=== PATIENT | female | born 1975 | race Caucasian/White ===

== ENCOUNTER 2018-07-12 14:17 | Outpatient (CLI) | payer BC, SELFPAY ==
[2018-07-12 15:08] LABS: Abs Immature Grans 0.01 k/cumm (0.0-0.09); Absolute Basophil Count 0.02 k/cumm (0.0-0.2); Absolute Eosinophil Count 0.35 k/cumm (0.0-0.7); Absolute Lymphocyte Count 1.95 k/cumm (1.2-3.4); Absolute Neutrophil Count 4.44 k/cumm (1.2-6.7); Basophils % 0.3; Eosinophils % 4.9; HCT 38.4 % (36.0-46.0); HGB 12.2 g/dL (12.0-15.5); Immature Grans % 0.1; Lymphocytes % 27.2; Mean Corp. HGB Concentration 31.8 g/dL (32.0-36.0); Mean Corpuscular Hemoglobin 26.1 pg (27.0-33.0); Mean Corpuscular Volume 82.1 fL (80-95); Mean Platelet Volume 11.2 fL (8.0-11.0); Monocytes % 5.6; Neutrophils % 61.9; Platelet Count 206 x1000/uL (130-400); RBC 4.68 m/cumm (4.00-5.20); White Blood Cell Count 7.17 k/cumm (4.4-10.8)
[2018-07-12 16:28] LABS: Ferritin 10 ng/mL (8-388); TSH (W/Ref FT4) 0.09 uIU/mL (0.358-3.74)
[2018-07-12 17:13] LABS: FREE T4 1.18 ng/dL (0.76-1.46)
[2018-07-12 20:53] LABS: Iron 23 ug/dL (50-175)
== END 2018-07-12 14:37 ==
PROVIDERS: PCP Family Medicine; Visit Provider Family Medicine
DX: E61.1 Iron deficiency (principal); E03.9 Hypothyroidism, unspecified
CPT/HCPCS: 36415; 82728; 83540; 84439; 84443; 85025

== ENCOUNTER 2019-02-01 14:37 | Outpatient (CLI) | payer BC, SELFPAY ==
[2019-02-01 15:33] LABS: HCT 34.4 % (36.0-46.0); HGB 10.6 g/dL (12.0-15.5); Mean Corp. HGB Concentration 30.8 g/dL (32.0-36.0); Mean Corpuscular Hemoglobin 24.7 pg (27.0-33.0); Mean Platelet Volume 12.1 fL (8.0-11.0); Platelet Count 197 x1000/uL (130-400); RBC Distribution Width 16.3 % (11.7-14.6); White Blood Cell Count 6.44 k/cumm (4.4-10.8)
[2019-02-01 16:31] LABS: Iron 36 ug/dL (50-175)
[2019-02-01 16:37] LABS: TSH (W/Ref FT4) 0.09 uIU/mL (0.358-3.74)
== END 2019-02-01 14:57 ==
PROVIDERS: PCP Family Medicine; Visit Provider Family Medicine
DX: E03.9 Hypothyroidism, unspecified (principal); E61.1 Iron deficiency
CPT/HCPCS: 36415; 85027; 83540; 84439; 84443

== ENCOUNTER 2019-04-19 16:34 | Outpatient (CLI) | payer BC, SELFPAY ==
[2019-04-19 17:08] LABS: Abs Immature Grans 0.01 k/cumm (0.0-0.09); Absolute Basophil Count 0.03 k/cumm (0.0-0.2); Absolute Eosinophil Count 0.24 k/cumm (0.0-0.7); Absolute Lymphocyte Count 2.01 k/cumm (1.2-3.4); Absolute Monocyte Count 0.35 k/cumm (0.11-0.7); Absolute Neutrophil Count 3.38 k/cumm (1.2-6.7); Basophils % 0.5; HGB 10.4 g/dL (12.0-15.5); Immature Grans % 0.2; Lymphocytes % 33.4; Mean Corp. HGB Concentration 30.6 g/dL (32.0-36.0); Mean Corpuscular Hemoglobin 23.6 pg (27.0-33.0); Mean Corpuscular Volume 77.3 fL (80-95); Mean Platelet Volume 11.8 fL (8.0-11.0); Monocytes % 5.8; Neutrophils % 56.1; Platelet Count 256 x1000/uL (130-400); RBC Distribution Width 15.4 % (11.7-14.6); White Blood Cell Count 6.02 k/cumm (4.4-10.8)
[2019-04-19 17:44] LABS: Iron 20 ug/dL (50-175)
[2019-04-19 17:50] LABS: TSH 0.08 uIU/mL (0.36-3.74)
== END 2019-04-19 16:54 ==
PROVIDERS: PCP Family Medicine; Visit Provider Internal Medicine
DX: R79.89 Other specified abnormal findings of blood chemistry (principal); E03.9 Hypothyroidism, unspecified
CPT/HCPCS: 36415; 83540; 84439; 84443; 85025

== ENCOUNTER 2020-03-22 08:25 | Outpatient (CLI) | payer BC, SELFPAY ==
[2020-03-22 13:08] LABS: FREE T4 1.18 ng/dL (0.76-1.46); TSH 1.56 uIU/mL (0.36-3.74)
[2020-03-25 05:24] LABS: Vitamin D 25 Total 40.8 ng/ml (30-100)
== END 2020-03-22 08:45 ==
PROVIDERS: PCP Family Medicine; Visit Provider Family Medicine
DX: E03.8 Other specified hypothyroidism (principal); E06.3 Autoimmune thyroiditis
CPT/HCPCS: 36415; 82306; 84439; 84443

== ENCOUNTER 2020-12-24 01:33 | Outpatient (CLI) | payer BC, SELFPAY ==
--- NOTE | 2020-12-24 07:00 | DI.RAD_ITS ---
Exam(s) XR FOOT RT COMPLETE EXAM: XR FOOT RT COMPLETE CLINICAL HISTORY: r foot pain after walking,M79.671. TECHNIQUE: 2D digital imaging was performed. COMPARISON: No exams were available for comparison FINDINGS: BONES: No acute fracture is present. No bony destructive lesion is seen. JOINTS: No dislocation present. Mild degenerative changes of the 1st MTP joint. SOFT TISSUE: Normal. IMPRESSION: No acute fracture or dislocation. DATA REPOSITORY: RADIATION DOSE DELIVERED:
== END 2020-12-24 01:53 ==
PROVIDERS: PCP Family Medicine; Visit Provider Family Medicine
DX: M79.671 Pain in right foot (principal); M19.071 Primary osteoarthritis, right ankle and foot
CPT/HCPCS: 73630

== ENCOUNTER 2021-06-30 01:56 | Outpatient (CLI) | payer BC, SELFPAY ==
[2021-06-30 13:27] LABS: TSH (W/Ref FT4) 0.14 uIU/mL (0.36-3.74)
[2021-06-30 13:53] LABS: FREE T4 1.26 ng/dL (0.76-1.46)
[2021-06-30 16:33] LABS: T3,Free 4.3 pg/mL (2.8-5.3)
== END 2021-06-30 01:57 | disposition home or self-care (01) ==
LOC: LOS 01:56
PROVIDERS: PCP Family Medicine; Visit Provider Family Medicine
DX: E03.9 Hypothyroidism, unspecified (principal)
CPT/HCPCS: 36415; 84439; 84443; 84481

== ENCOUNTER 2022-09-11 01:42 | Outpatient (CLI) | payer BC, SELFPAY ==
[2022-09-11 11:14] LABS: HCT 30.4 % (36.0-46.0); HGB 8.1 g/dL (11.2-15.7); MCH 16.2 pg (27.0-33.0); MCHC 26.6 % (32.0-36.0); MCV 61 fL (80-95); Platelet Count 357 10^3/uL (130-400); RDW 20.7 % (11.7-14.6); RDW-SD 42.4 fL; WBC 7.45 10^3/uL (4.4-10.8)
[2022-09-11 11:47] LABS: Iron 13 ug/dL (50-170)
[2022-09-11 11:49] LABS: Ferritin 4 ng/mL (8-252); TSH (W/Ref FT4) 0.05 uIU/mL (0.36-3.74)
[2022-09-11 12:06] LABS: FREE T4 1.41 ng/dL (0.76-1.46)
== END 2022-09-11 01:43 | disposition home or self-care (01) ==
LOC: LBO 01:43
PROVIDERS: PCP Family Medicine; Visit Provider Family Medicine
DX: E03.9 Hypothyroidism, unspecified (principal); E61.1 Iron deficiency
CPT/HCPCS: 36415; 85027; 82728; 83540; 84439; 84443

== ENCOUNTER 2022-09-11 11:40 | Outpatient (REF) | payer BC, SELFPAY ==
--- NOTE | 2022-09-11 10:30 | PAPFT_PTH ---
PATIENT: Dorothea Salas LOC: [facility] U#:[id number] AGE/SX: 47/F ROOM: RE09/11/[address]: Ida Barnard MD : 1975 BED: DIS: 09/11/2022 SPEC #: [id number] RECD: 09/11/22 12:52 STATUS: [place] REQ #: [id number] DUGLAS: 09/11/22 10:[address]: Ida Barnard DEPT: [facility] Cytology RECD BY: Skylar Venegas ENTERED: 09/11/22 12:52 SP TYPE: PAPFT OTHR DR: Kaylee Bangura MD, DC Tissues: 1 - CX/ENDOCX FOR PAP SMEARS Procedures: PAP THIN PREP/UVM Screening HPV DNA PROBE Comments: [id number]
== END 2022-09-11 11:41 | disposition home or self-care (01) ==
LOC: LBN 11:40
PROVIDERS: PCP Family Medicine; Visit Provider Obstetrics & Gynecology
DX: Z11.51 Encounter for screening for human papillomavirus (HPV) (principal)
CPT/HCPCS: 88142; 87624

== ENCOUNTER 2022-11-17 01:56 | Outpatient (RCR) | payer BC, SELFPAY ==
[2022-10-27] MEDS: SODIUM FER. GLUC./SUC. 125 MG in Normal Saline 100 ML 110 MG IVPB (10:28)
[2022-10-27] MEDS: Normal Saline Flush 10 ML SYR IVP (10:33)
[2022-11-02] MEDS: SODIUM FER. GLUC./SUC. 125 MG in Normal Saline 100 ML 110 MG IVPB (11:12)
[2022-11-02] MEDS: Normal Saline Flush 10 ML SYR IVP (11:12)
[2022-11-10] MEDS: SODIUM FER. GLUC./SUC. 125 MG in Normal Saline 100 ML 110 MG IVPB (12:55)
[2022-11-10] MEDS: Normal Saline Flush 10 ML SYR IVP (13:10)
[2022-11-17] MEDS: SODIUM FER. GLUC./SUC. 125 MG in Normal Saline 100 ML 110 MG IVPB (12:42)
[2022-11-17] MEDS: Normal Saline Flush 10 ML SYR IVP (12:48)
== END 2022-11-20 23:59 | disposition home or self-care (01) ==
LOC: INF 01:56
PROVIDERS: PCP Family Medicine; Visit Provider Family Medicine
DX: D50.9 Iron deficiency anemia, unspecified (principal)
CPT/HCPCS: 96365; J2916

== ENCOUNTER 2022-12-02 03:12 | Outpatient (CLI) | payer BC, SELFPAY ==
[2022-12-02 16:05] LABS: HCT 34.5 % (36.0-46.0); HGB 9.9 g/dL (11.2-15.7); MCHC 28.7 % (32.0-36.0); MCV 66 fL (80-95); Platelet Count 310 10^3/uL (130-400); RBC 5.22 10^6/uL (3.93-5.22); RDW 27.8 % (11.7-14.6); RDW-SD 63.2 fL; WBC 7.07 10^3/uL (4.4-10.8)
[2022-12-02 17:02] LABS: Ferritin 17 ng/mL (8-252); TSH (W/Ref FT4) 0.11 uIU/mL (0.36-3.74)
[2022-12-02 17:09] LABS: Iron 14 ug/dL (50-170)
[2022-12-02 17:26] LABS: FREE T4 1.21 ng/dL (0.76-1.46)
== END 2022-12-02 03:13 | disposition home or self-care (01) ==
LOC: LBO 03:12
PROVIDERS: PCP Family Medicine; Visit Provider Family Medicine
DX: E61.1 Iron deficiency (principal); R53.83 Other fatigue; E03.9 Hypothyroidism, unspecified
CPT/HCPCS: 36415; 85027; 82728; 83540; 84439; 84443

== ENCOUNTER 2022-12-15 02:21 | Outpatient (RCR) | payer BC, SELFPAY ==
[2022-12-15] MEDS: Normal Saline Flush 10 ML SYR IVP (09:39)
[2022-12-15] MEDS: SODIUM FER. GLUC./SUC. 125 MG in Normal Saline 100 ML 110 MG IVPB (09:39)
== END 2022-12-20 23:59 | disposition home or self-care (01) ==
LOC: INF 02:21
PROVIDERS: PCP Family Medicine; Visit Provider Internal Medicine
DX: D50.9 Iron deficiency anemia, unspecified (principal)
CPT/HCPCS: 96365; J2916

== ENCOUNTER 2023-01-14 02:37 | Outpatient (RCR) | payer BC, SELFPAY ==
[2022-12-25] MEDS: Normal Saline Flush 10 ML SYR IVP (10:51)
[2022-12-25] MEDS: SODIUM FER. GLUC./SUC. 125 MG in Normal Saline 100 ML 110 MG IVPB (11:10)
[2023-01-05] MEDS: Normal Saline Flush 10 ML SYR IVP (12:30)
[2023-01-14] MEDS: Normal Saline Flush 10 ML SYR IVP (08:23)
[2023-01-14] MEDS: SODIUM FER. GLUC./SUC. 125 MG in Normal Saline 100 ML 110 MG IVPB (08:40)
== END 2023-01-20 23:59 | disposition home or self-care (01) ==
LOC: INF 02:37
PROVIDERS: PCP Family Medicine; Visit Provider Internal Medicine
DX: D50.9 Iron deficiency anemia, unspecified (principal)
CPT/HCPCS: 96365; J2916

== ENCOUNTER 2023-01-20 04:44 | Outpatient (CLI) | payer BC, SELFPAY ==
[2023-01-20 16:43] LABS: HCT 39.8 % (36.0-46.0); HGB 12.3 g/dL (11.2-15.7); MCH 23.7 pg (27.0-33.0); MCHC 30.9 % (32.0-36.0); Platelet Count 241 10^3/uL (130-400); RDW-SD 70.9 fL; Reticulocyte 0.6 % (0.5-2.4); WBC 9.35 10^3/uL (4.4-10.8)
[2023-01-20 17:54] LABS: Iron 34 ug/dL (50-170)
[2023-01-20 18:30] LABS: ALT 22 U/L (14-59); AST 17 U/L (15-37); Albumin 3.6 g/dL (3.4-5.0); Alkaline Phosphatase 69 U/L (46-116); Anion Gap 9.7 mmol/L (3-11); BUN 14 mg/dL (7-18); Bilirubin, Total 0.3 mg/dL (0.2-1.0); CO2 24.3 mmol/L (21.0-32.0); CREATININE 0.9 mg/dL (0.55-1.02); Calcium 8.7 mg/dL (8.5-10.1); Chloride 105 mmol/L (98-107); Estimated GFR 80.34 (mL/min/1.73m2); Folate 10.3 ng/mL (8.6-20.0); Glucose 121 mg/dL (74-106); Potassium 3.8 mmol/L (3.5-5.1); Sodium 139 mmol/L (136-145); Total Protein 6.9 g/dL (6.4-8.2); Vitamin B12 202 pg/mL (193-986)
[2023-01-20 18:40] LABS: Bilirubin, Direct 0.1 mg/dL (0.0-0.2)
[2023-01-20 19:24] LABS: MCV 77 fL (80-95)
[2023-01-20 19:25] LABS: RDW 26.2 % (11.7-14.6)
[2023-01-20 19:47] LABS: Ferritin 80 ng/mL (8-252)
[2023-01-22 15:32] LABS: ANA Interpretation Negative (Negative)
== END 2023-01-20 04:45 | disposition home or self-care (01) ==
LOC: LBO 04:44
PROVIDERS: Surgery; PCP Family Medicine; Visit Provider Family Medicine
DX: D50.9 Iron deficiency anemia, unspecified; E03.9 Hypothyroidism, unspecified; K21.9 Gastro-esophageal reflux disease without esophagitis; J45.20 Mild intermittent asthma, uncomplicated; R10.11 Right upper quadrant pain; Z12.11 Encounter for screening for malignant neoplasm of colon
CPT/HCPCS: 36415; 80053; 85027; 82248; 82607; 82728; 82746; 83540; 85045; 86038; 86880

== ENCOUNTER 2023-01-27 07:03 | Day surgery (SDC) | payer BC, SELFPAY ==
[2023-01-27 07:17] VITALS: BP 129/77; PULSE 75; RESP 16; TEMP 36.8; O2SAT 98
[2023-01-27] MEDS: Lactated Ringers 1,000 ML 80 ML IV (07:43)
--- NOTE | 2023-01-27 07:54 | ANES.PREOP_ITS ---
General Info Date of Service Date Performed: 01/27/23 Height: 5 ft 5 in Weight: 101.1 kg Body Mass Index (BMI): 37.0 Surgical Procedure: Operation Date: 01/27/23 08:05 Proposed Procedure Side Surgeon p Colonoscopy/Gastroscopy Jean-Paul Bear MD Meds Allergies and Home Medications Allergies Allergy/AdvReac Type Severity Reaction Status Date / Time clindamycin Allergy Intermediate Rash Verified 01/27/23 07:14 Penicillins Allergy Mild rash Verified 01/27/23 07:14 morphine AdvReac Severe HALLUCINATI Verified 01/27/23 07:14 ONS promethazine AdvReac Severe TONIC/CLONIC Verified 01/27/23 07:14 REACTION Home Medication Medication Instructions Recorded acetaminophen 500 mg tablet 2 tab PO TID PRN 11/29/12 (Acetaminophen Extra Strength) ibuprofen 200 mg tablet (Motrin IB) 2 tab PO TID PRN 11/29/12 polysaccharide iron complex 150 mg 150 mg PO DAILY 02/02/19 iron capsule levothyroxine 150 mcg tablet 150 mcg PO DAILY #90 tab-caps 12/02/22 liothyronine 5 mcg tablet 10 mcg PO DAILY #180 tab-caps 12/02/22 ascorbic acid (vitamin C) 500 mg 500 mg PO DAILY 01/14/23 tablet Current Visit Medications: Current Medications Generic Name Dose Route Start Last Admin Trade Name Aaronq PRN Reason Stop Dose Admin Ringer's Solution 1,000 mls @ 80 mls/hr 01/27/23 06:00 01/27/23 07:43 IV 02/25/23 23:59 80 mls/hr INFUSION LINDA Administration IV Miscellaneous Supplies 1 each 01/27/23 06:00 Iv Access IV 02/25/23 23:59 DIRECTED LINDA Sodium Chloride 0 ml 01/27/23 06:00 Normal Saline Flush 10 Ml Syr IV 02/25/23 23:59 PRN PRN Sodium Chloride 0 ml 01/27/23 06:00 Normal Saline 10 Ml Vial IJ 02/25/23 23:59 DIRECTED PRN Sterile Water 0 ml 01/27/23 06:00 Water,Injection,Sterile 10 Ml Vial IJ 02/25/23 23:59 DIRECTED PRN PFSH Active Problems Active Problems: Problem Status Onset Code Encounter for screening colonoscopy Z12.11 Family history of skin cancer Z80.8 Patellofemoral arthralgia of left knee M25.562 Fe deficiency anemia D50.9 RUQ abdominal pain R10.11 Medical History Medical History Gastroesophageal reflux disease (03/15/12) Goiter (08/23/04) H/O POST GOITER; h/o hypothyroid and abnl antimicrosomal ab 2005 Hypothyroidism (03/16/12) [place] [place] HASHIMOTOS, THYROID NODULE, GOITER Iron deficiency (03/16/13) Mild intermittent reactive airway disease (08/20/15) Pt. deniesw Right foot pain Sacral back pain Surgical History Surgical History Endometrial Biopsy (05/18/14) [facility] Hx of appendectomy Tobacco Smoking/Tobacco Use Status: Never Passive smoking exposure: No Second hand exposure: No Alcohol Alcohol Intake: current Alcohol intake frequency: a few times a month Substance Use Substance use: Never Substance use type: does not use Prental History History 2 Para 2 Hx # Term Pregnancies Multiple births Hx # Pregnancies Ectopic pregnancies AB induced Hx Number of Living Children AB spontaneous Vital Signs and Lab Results Vital Signs Most Recent Vital Signs in EMR: Most Recent Vital Signs Temp Pulse Resp BP Pulse Ox 36.8 C 75 16 129/77 98 01/27/23 07:17 01/27/23 07:17 01/27/23 07:17 01/27/23 07:17 01/27/23 07:17 Lab Results Blood Type / Crossmatch: No Data to Display Complete Blood Count: White Blood Count 9.35 10^3/uL (4.4-10.8) 01/20/23 16:18 Red Blood Count 5.20 10^6/uL (3.93-5.22) 01/20/23 16:18 Hemoglobin 12.3 g/dL (11.2-15.7) 01/20/23 16:18 Hematocrit 39.8 % (36.0-46.0) 01/20/23 16:18 Platelet Count 241 10^3/uL (130-400) 01/20/23 16:18 Complete Metabolic Panel: Sodium 139 mmol/L (136-145) 01/20/23 16:18 Potassium 3.8 mmol/L (3.5-5.1) 01/20/23 16:18 Chloride 105 mmol/L (98-107) 01/20/23 16:18 Carbon Dioxide 24.3 mmol/L (21.0-32.0) 01/20/23 16:18 BUN 14 mg/dL (7-18) 01/20/23 16:18 Creatinine 0.9 mg/dL (0.55-1.02) 01/20/23 16:18 Est GFR (CKD-EPI 2020) 80.34 (mL/min/1.73m2) 01/20/23 16:18 Calcium 8.7 mg/dL (8.5-10.1) 01/20/23 16:18 Albumin 3.6 g/dL (3.4-5.0) 01/20/23 16:18 Glucose 121 mg/dL (74-106) H 01/20/23 16:18 Liver Function Panel: Alanine Aminotransferase (ALT/SGPT) 22 U/L (14-59) 01/20/23 16: 18 Aspartate Amino Transf (AST/SGOT) 17 U/L (15-37) 01/20/23 16:18 Coagulation Panel: No Data to Display Cardiac Panel: No Data to Display Arterial Blood Gas: No Data to Display Venous Blood Gas: No Data to Display Pancreas Panel: No Data to Display Thyroid Panel: No Data to Display Infectious Disease: No Data to Display Blood Cultures: No Data to Display Toxicology Panel: No Data to Display Panel: No Data to Display Anesthesia Assessment and Plan Anesthesia History Personal History: No History of Anesthesia Complications Family History: No Family History of Anesthesia Complications Exercise Tolerance Exercise Tolerance: Metabolic Equivalents>4 Pertinent Negatives Pertinent Negatives: No Symptoms of GERD, No Major Cardiovascular Symptoms or Complaints, No Major Pulmonary Symptoms or Complaints and No History of CVA/TIA Cardiac & Pulmonary Exam Cardiac Exam: Normal S1/S2 Heart Sounds Pulmonary Exam: Clear Bilateral Breath Sounds Implantable Cardiac Device Does patient have a Pacemaker or an ICD?: No Airway Exam Known Difficult Airway: No Mallampati Class: 2 Mouth Opening: Normal (> 3cm) Thyromental Distance: Greater than 3 cm Neck Range of Motion: Full ROM Neck Circumference: Normal Teeth Condition: Normal Dentition ASA Classification ASA Score: ASA 2 Emergency Case?: No NPO Status NPO Status: NPO Clears >2 hours, Solids >8 hours Status Status: Negative HCG Anesthesia Plan Resuscitation Status: Full Code Anesthesia Technique: General Anesthesia Airway Planned: Natural Airway Monitors Used: Standard Monitors
[2023-01-27 08:13] VITALS: BMI 37.0
--- NOTE | 2023-01-27 08:33 | BOWEL_PTH ---
PATIENT: Dorothea Salas LOC: [facility] U#:[id number] AGE/SX: 47/F ROOM: RE01/27/[address]: Jean-Paul Bear : 1975 BED: DIS: 01/27/2023 SPEC #: [id number] RECD: 01/27/23 10:54 STATUS: [place] [facility] #: [id number] DUGLAS: 01/27/23 08:[address]: Jean-Paul Bear DEPT: Surgical Specimen RECD BY: Skylar Venegas ENTERED: 01/27/23 10:57 SP TYPE: Bowel OTHR DR: Kaylee Bangura MD, DC Tissues: 1 - BIOPSY BOWEL 2 - BIOPSY BOWEL 3 - STOMACH BIOPSY 4 - STOMACH BIOPSY 5 - ESOPHAGUS BIOPSY 6 - BIOPSY BOWEL 7 - BIOPSY BOWEL 8 - BIOPSY BOWEL Procedures: GROSS AND MICRO LEVEL 4 IMMUNOPEROXIDASE STAIN Comments:
[2023-01-27 09:02] VITALS: BP 107/75; PULSE 73; RESP 16; TEMP 36.5; O2SAT 98
--- NOTE | 2023-01-27 09:09 | W.PM.ENDDOP ---
Date of service: 01/27/23 Time of Service: 09:10 Endoscopy Report PROCEDURE DESCRIPTION: Procedures performed: 1.? Esophagogastroduodenoscopy with cold forceps biopsies Preoperative diagnosis: Anemia, low iron Postoperative diagnosis: Normal foregut Surgeon: Clarence Bear Anesthesia: Evi Indication for procedure: 47-year-old woman with a history of abdominal issues, possible celiac disease as well as anemia and low iron chronically. Findings: - D4, D3, D2 and D1 - normal - no inflammation or ulcers. Cold forceps biopsies were taken of the distal duodenum as well as at the bulb to rule out celiac disease. - Pylorus - patent.? No bile reflux visualized during procedure. - Antrum -looks normal.- biopsies taken to rule out occult H. pylori - Stomach Body -looks normal.? Biopsies taken to rule out occult H. pylori. - Fundus -? Normal.? No polyps. - Hiatus - Retroflexion showed a normal fundus along with normal hiatus. No hernia. - Esophagus - distal esophagus does not look inflamed.? No stricture or evidence of Mahan's.? The mid and proximal esophagus was also normal. Cold forceps biopsies were taken at the distal esophagus. - Cords/hypopharynx - Normal OVERALL - nothing visually found or seen out of concern. Surveillance/follow-up recommendations: Unlikely to be necessary. Complications: None Blood loss: Minimal Specimens:? YES Procedure in detail: Written consent was obtained from the patient who was in agreement with the risks, benefits and indications of the procedure.? We went to the endoscopy suite and laid the patient in left lateral decubitus position.? Anesthesia was administered which was tolerated well.? A timeout was performed and when we are all in agreement we began the procedure. A well?lubricated endoscope was advanced without difficulty down the esophagus, into the stomach, through a patent pylorus and into the distal duodenum/proximal jejunum.? It was then slowly pulled back with findings noted above. The scope was then removed and the patient tolerated the procedure well and was then turned for the colonoscopy portion of the procedure (see separate procedure note)
--- NOTE | 2023-01-27 09:16 | W.COLOREPORT ---
Date of service: 01/27/23 Time of Service: 09:10 Colonoscopy Report Procedure Description: Procedures performed: 1. Colonoscopy with cold forceps biopsies Preoperative diagnosis: Surveillance colonoscopy Postoperative diagnosis: Colon polyp, grade 1 internal hemorrhoids Surgeon: Clarence Bear Anesthesia: Evi Indication for procedure: 47-year-old woman due for screening/surveillance colonoscopy (she has had 1 done before, more than 10 years ago for abdominal discomfort). Findings: Terminal ileum was normal.? There was no evidence in the mucosa of the colon or ileum to suggest chronic inflammation.? Cold forceps biopsies were taken from both of these randomly because of her chronic symptoms.? In the transverse colon a sessile 3-5 mm polyp was removed with multiple biopsies of a cold forcep. No diverticular changes noted. Minimal, grade 1 internal hemorrhoids noted in the rectum along with a couple of small hyperplastic polyps. Surveillance/follow-up recommendations: 10 years Complications: None Blood loss: Minimal Prep: Excellent Procedure in detail: Written consent was obtained from the patient who was in agreement with the risks, benefits and indications of the procedure.? The patient was turned from her upper endoscopy (see separate procedure note) and anesthesia was continued and the patient was kept in the same position I started the colonoscopy portion of the procedure.? Digital rectal exam and visual examination was performed.? Normal sphincter tone.? Internal hemorrhoids are palpable.? A well?lubricated colonoscope was advanced without difficulty all the way to the cecum identified by the ileocecal valve, and triangular folds and appendiceal orifice.? Terminal ileum was normal.? It was then slowly withdrawn.?? Retroflexion was performed in the rectum.? The findings/interventions are noted above. The scope was then removed and the patient tolerated the procedure well and was then taken back to the PACU in hemodynamically stable condition
--- NOTE | 2023-01-27 09:18 | W.ANESPOSTOP ---
Postoperative Evaluation Date, Time and Location Date Performed: 01/27/23 Time Performed: 09:16 Patient Location: Day Surgery Unit Vital Signs Most Recent Imported Vital Signs: Most Recent Vital Signs Temp Pulse Resp BP Pulse Ox 36.5 C 73 16 107/75 98 01/27/23 09:02 01/27/23 09:02 01/27/23 09:02 01/27/23 09:02 01/27/23 09:02 Pain Score Most Recent Pain Score: Most Recent Pain Score Pain Level 0 01/27/23 09:02 Assessment Mental Status: Awake (Alert & Oriented to Patient Baseline) Airway and Respiratory Function: Patent airway with normal (patient baseline) respiratory exam Cardiovascular Function: Hemodynamically Stable Hydration Status: Adequately Hydrated Nausea & Vomiting: No Nausea or Vomiting Pain: Pt. Denies Any Pain Peripheral Nerve Block: Patient did not receive a nerve block
[2023-01-27 09:34] VITALS: BP 113/68; PULSE 55; RESP 16; TEMP 36.6; O2SAT 98
== END 2023-01-27 09:55 | disposition home or self-care (01) ==
PROVIDERS: PCP Family Medicine; Visit Provider Student in an Organized Health Care Education/Training Program
PROC: (CPT 45380; principal; 2023-01-27 08:00)
DX: Z12.11 Encounter for screening for malignant neoplasm of colon (principal); K63.5 Polyp of colon; K64.0 First degree hemorrhoids; D61.1 Drug-induced aplastic anemia; D64.9 Anemia, unspecified; K31.89 Other diseases of stomach and duodenum
CPT/HCPCS: 45380; 43239; 81025; 88305; 88361; J2405

== ENCOUNTER 2023-02-15 02:47 | Outpatient (RCR) | payer BC, SELFPAY ==
[2023-02-01] MEDS: SODIUM FER. GLUC./SUC. 125 MG in Normal Saline 100 ML 110 MG IVPB (08:05)
[2023-02-01] MEDS: Normal Saline Flush 10 ML SYR IVP (08:05)
[2023-02-08] MEDS: SODIUM FER. GLUC./SUC. 125 MG in Normal Saline 100 ML 110 MG IVPB (08:50)
[2023-02-08] MEDS: Normal Saline Flush 10 ML SYR IVP (08:51)
[2023-02-15] MEDS: SODIUM FER. GLUC./SUC. 125 MG in Normal Saline 100 ML 110 MG IVPB (08:34)
[2023-02-15] MEDS: Normal Saline Flush 10 ML SYR IVP (08:34)
== END 2023-02-19 23:59 | disposition home or self-care (01) ==
LOC: INF 02:47
PROVIDERS: PCP Family Medicine; Visit Provider Internal Medicine
DX: D50.9 Iron deficiency anemia, unspecified (principal)
CPT/HCPCS: 96365; J2916

== ENCOUNTER 2023-04-16 01:36 | Outpatient (CLI) | payer BC, SELFPAY ==
[2023-04-16 12:35] LABS: FREE T4 1.42 ng/dL (0.76-1.46); TSH 0.08 uIU/mL (0.36-3.74)
[2023-04-17 14:35] LABS: Lab Add On Test DONE
[2023-04-17 14:57] LABS: Iron 46 ug/dL (50-170)
[2023-04-17 15:10] LABS: Ferritin 71 ng/mL (8-252)
== END 2023-04-16 01:37 | disposition home or self-care (01) ==
LOC: LBO 01:36
PROVIDERS: PCP Family Medicine; Visit Provider Family Medicine
DX: D50.9 Iron deficiency anemia, unspecified (principal); E03.9 Hypothyroidism, unspecified
CPT/HCPCS: 36415; 82728; 83540; 84439; 84443

== ENCOUNTER 2023-05-10 04:24 | Outpatient (CLI) | payer BC, SELFPAY ==
[2023-05-10 17:01] LABS: Abs Immature Grans 0.01 10^3/uL (0.0-0.06); Absolute Basophil Count 0.03 10^3/uL (0.0-0.2); Absolute Eosinophil Count 0.18 10^3/uL (0.0-0.7); Absolute Lymphocyte Count 1.75 10^3/uL (1.2-3.4); Absolute Monocyte Count 0.38 10^3/uL (0.1-0.8); Absolute Neutrophil Count 5.49 10^3/uL (1.2-6.7); Basophils % 0.4; Eosinophils % 2.3; HCT 40.8 % (36.0-46.0); HGB 13.4 g/dL (11.2-15.7); Immature Grans % 0.1; Lymphocytes % 22.3; MCH 28.8 pg (27.0-33.0); MCHC 32.8 % (32.0-36.0); MCV 88 fL (80-95); MPV 11.9 fL (8.0-11.0); Monocytes % 4.8; Neutrophils % 70.1; Platelet Count 156 10^3/uL (130-400); RBC 4.65 10^6/uL (3.93-5.22); RDW 13.5 % (11.7-14.6); RDW-SD 43.2 fL; WBC 7.84 10^3/uL (4.4-10.8)
== END 2023-05-10 04:25 | disposition home or self-care (01) ==
LOC: LBO 04:24
PROVIDERS: PCP Family Medicine; Visit Provider Obstetrics & Gynecology
DX: Z01.818 Encounter for other preprocedural examination (principal)
CPT/HCPCS: 36415; 86850; 86900; 86901; 85025

== ENCOUNTER 2023-05-12 07:20 | Day surgery (SDC) | payer BC, SELFPAY ==
[2023-05-12] VITALS (11 sets, daily range): BP systolic 118–135; BP diastolic 62–82; PULSE 57–86; RESP 12–18; TEMP 36.2–37; O2SAT 94–100; BMI 37.1
--- NOTE | 2023-05-12 07:47 | W.ANESPRE ---
General Info Date of Service Date Performed: 05/12/23 Height: 5 ft 5 in Weight: 101.2 kg Body Mass Index (BMI): 37.1 Surgical Procedure: Operation Date: 05/12/23 09:10 Proposed Procedure Side Surgeon p Dilation & Curettage with Hysteroscopy, Myosure Nicki Alejo DO s Insertion of IUD Nicki Alejo DO Actual Procedure Side Surgeon p Dilation & Curettage with Hysteroscopy, Myosure Nicki Alejo DO s Insertion of IUD Nicki Alejo DO Pre-Op Diagnosis Post-Op Diagnosis DUB (dysfunctional uterine bleeding) Meds Allergies and Home Medications Allergies Allergy/AdvReac Type Severity Reaction Status Date / Time clindamycin Allergy Intermediate Rash Verified 05/12/23 07:44 Penicillins Allergy Mild rash Verified 05/12/23 07:44 morphine AdvReac Severe HALLUCINATI Verified 05/12/23 07:44 ONS promethazine AdvReac Severe TONIC/CLONIC Verified 05/12/23 07:44 REACTION Home Medication Medication Instructions Recorded acetaminophen 500 mg tablet 2 tab PO TID PRN 11/29/12 (Acetaminophen Extra Strength) ibuprofen 200 mg tablet (Motrin IB) 2 tab PO TID PRN 11/29/12 polysaccharide iron complex 150 mg 150 mg PO DAILY 02/02/19 iron capsule levothyroxine 150 mcg tablet 150 mcg PO DAILY #90 tab-caps 12/02/22 liothyronine 5 mcg tablet 10 mcg PO DAILY #180 tab-caps 12/02/22 ascorbic acid (vitamin C) 500 mg 500 mg PO DAILY 01/14/23 tablet Current Visit Medications: Current Medications Generic Name Dose Route Start Last Admin Trade Name Aaronq PRN Reason Stop Dose Admin Ringer's Solution 1,000 mls @ 125 mls/hr 05/12/23 06:00 IV 06/10/23 23:59 INFUSION LINDA IV Miscellaneous Supplies 1 each 05/12/23 06:00 Iv Access IV 06/10/23 23:59 DIRECTED LINDA Sodium Chloride 0 ml 05/12/23 06:00 Normal Saline Flush 10 Ml Syr IV 06/10/23 23:59 PRN PRN Sodium Chloride 0 ml 05/12/23 06:00 Normal Saline 10 Ml Vial IJ 06/10/23 23:59 DIRECTED PRN Sterile Water 0 ml 05/12/23 06:00 Water,Injection,Sterile 10 Ml Vial IJ 06/10/23 23:59 DIRECTED PRN PFSH Active Problems Active Problems: Problem Status Onset Code Encounter for screening colonoscopy Z12.11 Family history of skin cancer Z80.8 Patellofemoral arthralgia of left knee M25.562 Fe deficiency anemia D50.9 RUQ abdominal pain R10.11 Sessile serrated polyp of colon ~01/27/23 D12.6 Gastritis ~01/27/23 K29.70 DUB (dysfunctional uterine bleeding) N93.8 Thickened endometrium R93.89 Left knee pain M25.562 Shoulder pain M25.519 Medical History Medical History Gastroesophageal reflux disease (03/15/12) Goiter (08/23/04) H/O POST GOITER; h/o hypothyroid and abnl antimicrosomal ab 2004 Hypothyroidism (03/16/12) SURAJ; [place]OCRINE [place] [place] HASHIMOTOS, THYROID NODULE, GOITER Iron deficiency (03/16/13) Mild intermittent reactive airway disease (08/20/15) Pt. denies Right foot pain Sacral back pain Surgical History Surgical History Endometrial Biopsy (05/18/14) [facility] History of colonoscopy with polypectomy (~01/27/23) History of esophagogastroduodenoscopy (EGD) (~01/27/23) Hx of appendectomy Tobacco Smoking/Tobacco Use Status: Never Passive smoking exposure: No Second hand exposure: No Alcohol Alcohol Intake: current Alcohol intake frequency: a few times a month Substance Use Substance use: Never Substance use type: does not use Prental History History 2 Para 2 Hx # Term Pregnancies Multiple births Hx # Pregnancies Ectopic pregnancies AB induced Hx Number of Living Children AB spontaneous Vital Signs and Lab Results Vital Signs Most Recent Vital Signs in EMR: Most Recent Vital Signs Temp Pulse Resp BP Pulse Ox 36.6 C 71 18 135/70 99 05/12/23 07:38 05/12/23 07:38 05/12/23 07:38 05/12/23 07:38 05/12/23 07:38 Point of Care Results Point of Care Results: POC- Test(urine) Negative 05/12/23 07:43 Lab Results Blood Type / Crossmatch: Patient ABO/Rh O Positive 05/10/23 Antibody Screen NEGATIVE 05/10/23 Complete Blood Count: White Blood Count 7.84 10^3/uL (4.4-10.8) 05/10/23 16:26 Red Blood Count 4.65 10^6/uL (3.93-5.22) 05/10/23 16:26 Hemoglobin 13.4 g/dL (11.2-15.7) 05/10/23 16:26 Hematocrit 40.8 % (36.0-46.0) 05/10/23 16:26 Platelet Count 156 10^3/uL (130-400) 05/10/23 16:26 Complete Metabolic Panel: No Data to Display Liver Function Panel: No Data to Display Coagulation Panel: No Data to Display Cardiac Panel: No Data to Display Arterial Blood Gas: No Data to Display Venous Blood Gas: No Data to Display Pancreas Panel: No Data to Display Thyroid Panel: Thyroid Stimulating Hormone (TSH) 0.08 uIU/mL (0.36-3.74) L 04/16/23 11:55 Infectious Disease: No Data to Display Blood Cultures: No Data to Display Toxicology Panel: No Data to Display Panel: No Data to Display Anesthesia Assessment and Plan Anesthesia History Personal History: No History of Anesthesia Complications Family History: No Family History of Anesthesia Complications Exercise Tolerance Exercise Tolerance: Metabolic Equivalents>4 Pertinent Negatives Pertinent Negatives: No Symptoms of GERD, No Major Cardiovascular Symptoms or Complaints and No Major Pulmonary Symptoms or Complaints Cardiac & Pulmonary Exam Cardiac Exam: Normal S1/S2 Heart Sounds Pulmonary Exam: Clear Bilateral Breath Sounds Implantable Cardiac Device Does patient have a Pacemaker or an ICD?: No Airway Exam Known Difficult Airway: No Mallampati Class: 2 Mouth Opening: Normal (> 3cm) Thyromental Distance: Greater than 3 cm Neck Range of Motion: Full ROM Neck Circumference: Normal Teeth Condition: Normal Dentition ASA Classification ASA Score: ASA 2 Emergency Case?: No NPO Status NPO Status: NPO Clears >2 hours, Solids >8 hours Status Status: Negative HCG Anesthesia Plan Resuscitation Status: Full Code Anesthesia Technique: General Anesthesia Airway Planned: LMA Monitors Used: Standard Monitors
[2023-05-12] MEDS: Lactated Ringers 1,000 ML 125 ML IV (07:57)
--- NOTE | 2023-05-12 08:38 | ENDO_PTH ---
PATIENT: Dorothea Salas LOC: [facility] U#:[id number] AGE/SX: 48/F ROOM: RE05/12/[address]: Nicki Alejo DO : 1975 BED: DIS: 05/12/2023 SPEC #: [id number] RECD: 05/12/23 12:48 STATUS: [place] RE #: [id number] DUGLAS: 05/12/23 08:[address]: Nicki Alejo DEPT: Surgical Specimen RECD BY: Skylar Venegas ENTERED: 05/12/23 12:50 SP TYPE: Endo OTHR DR: Kaylee Bangura MD, DC Tissues: 1 - ENDOCERVICAL BX/CURRETTE 2 - ENDOMETRIUM BX/CURRETTE Procedures: GROSS AND MICRO LEVEL 4 Comments: [id number]
--- NOTE | 2023-05-12 08:53 | W.PM.OP ---
Date of service: 05/12/23 Time of Service: 08:54 Operative Note Operative Note DATE OF PROCEDURE: 05/12/23 PRE-OP DIAGNOSIS: Dysfunctional uterine bleeding, thickened endometrium POST-OP DIAGNOSIS: same PROCEDURE: Hysteroscopy with dilation and curettage, insertion of Mirena IUD SURGEON: Nicki Alejo ANESTHESIA TYPE: General LMA/ETT Refer to Anesthesia Record ESTIMATED BLOOD LOSS: 10 PATHOLOGY: other (1. Endocervical curettage 2. Endometrial curettage) COMPLICATIONS: None Patient was transported to: PACU Patient's condition: stable Implants: Mirena IUD: Lot: [id number] Expiration 05/2025 Indications: Dysfunctional uterine bleeding, thickened endometrium Findings: Enlarged uterus, sounded to 9 cm, plush, regular endometrial lining. Moderate endometrial curettings. Procedure Description: After full informed consent was obtained, patient was taken the operating suite with an IV running. She was placed in the dorsal supine and general anesthesia administered via LMA. Pneumatic compression stockings were placed for DVT prophylaxis she was then placed in the modified dorsal lithotomy position and prepped and draped in the usual sterile fashion. Exam under anesthesia revealed a uterus that was approximately 8 weeks size. Uterus was freely mobile and there are no evidence of adnexal masses. Speculum was inserted into the vaginal vault and the cervical os identified. A single-tooth tenaculum was used to grasp the anterior lip of the cervix and cervical os dilated to the point that a 4 mm hysteroscope could be passed with ease. Under direct visualization with fluid management system, the uterus was instilled with normal saline. This allowed visualization of the endocervix, and entire endometrial cavity. The cavity was smooth and regular, with a plush endometrium. Both tubal ostia were identified. At this point, with no evidence of polyp or fibroid appreciated, the hysteroscope portion of the procedure was terminated. A fractional dilation and curettage was performed with first collection of endocervical cells, followed by endometrial curetting. There was limited endocervical tissue, however prolific endometrial tissue. Once the dilation and curettage was performed, Mirena system was inserted through the cervical os to the fundus and deployed. IUD strings were cut to 3 cm. Tenaculum was removed and puncture site was hemostatic. Speculum was removed. With our fluid collection system, there was 0 deficit of normal saline. Complications: None apparent Pathology: 1. Endocervical curetting 2. Endometrial curetting Fluid: Crystalloid per anesthesia, 0 deficit from hysteroscope Implant, Mirena IUD Lot [id number],, expiration 05/2025.
[2023-05-12] MEDS: fentaNYL 100 MCG/2 ML VIAL IVP ×3 (09:20→09:39)
[2023-05-12] MEDS: oxyCODONE 5 mg/Acetaminophen 325 mg TAB 1 TAB PO (10:39)
--- NOTE | 2023-05-12 11:09 | W.ANESPOSTOP ---
Postoperative Evaluation Date, Time and Location Date Performed: 05/12/23 Time Performed: 11:09 Patient Location: Day Surgery Unit Vital Signs Most Recent Imported Vital Signs: Most Recent Vital Signs Temp Pulse Resp BP Pulse Ox 36.2 C L 61 16 124/69 95 05/12/23 10:26 05/12/23 10:26 05/12/23 10:26 05/12/23 10:05/12/23 10:26 Pain Score Most Recent Pain Score: Most Recent Pain Score Pain Level 2 05/12/23 10:26 Assessment Mental Status: Awake (Alert & Oriented to Patient Baseline) Airway and Respiratory Function: Patent airway with normal (patient baseline) respiratory exam Cardiovascular Function: Hemodynamically Stable Hydration Status: Adequately Hydrated Nausea & Vomiting: No Nausea or Vomiting Pain: Pain is tolerable per patient Peripheral Nerve Block: Patient did not receive a nerve block
== END 2023-05-12 11:25 | disposition home or self-care (01) ==
PROVIDERS: PCP Family Medicine; Visit Provider Obstetrics & Gynecology
PROC: 0UDB8ZZ Extraction of Endometrium, Via Natural or Artificial Opening Endoscopic (ICD-10-PCS; CPT 58558; principal; 2023-05-12 09:00)
PROC: (CPT 58558; 2023-05-12 09:00)
DX: N93.8 Other specified abnormal uterine and vaginal bleeding (principal); R93.89 Abnormal findings on diagnostic imaging of other specified body structures
CPT/HCPCS: 58558; 58300; 81025; 88305; J1100; J1885; J2405; J3010

== ENCOUNTER 2023-11-05 02:52 | Outpatient (CLI) | payer BC, SELFPAY ==
[2023-11-05 13:40] LABS: HCT 44.3 % (36.0-46.0); HGB 14.1 g/dL (11.2-15.7); MCHC 31.8 % (32.0-36.0); MCV 88 fL (80-95); MPV 11.7 fL (8.0-11.0); Platelet Count 200 10^3/uL (130-400); RBC 5.03 10^6/uL (3.93-5.22); RDW 13.9 % (11.7-14.6); RDW-SD 44.2 fL; WBC 8.66 10^3/uL (4.4-10.8)
[2023-11-05 14:12] LABS: ALT 32 U/L (14-59); AST 22 U/L (15-37); Albumin 3.7 g/dL (3.4-5.0); Alkaline Phosphatase 70 U/L (46-116); Anion Gap 10.9 mmol/L (3-11); BUN 12 mg/dL (7-18); Bilirubin, Total 0.6 mg/dL (0.2-1.0); CO2 26.1 mmol/L (21.0-32.0); CREATININE 0.9 mg/dL (0.55-1.02); Calcium 8.9 mg/dL (8.5-10.1); Calculated LDL 90 mg/dL (<100); Chloride 104 mmol/L (98-107); Cholesterol 158 mg/dL (<200); Estimated GFR 79.85 (mL/min/1.73m2); Ferritin 36 ng/mL (8-252); Glucose 86 mg/dL (74-106); HDL Cholesterol 45 mg/dL (40-60); Potassium 4.2 mmol/L (3.5-5.1); Sodium 141 mmol/L (136-145); TSH (W/Ref FT4) 2.13 uIU/mL (0.36-3.74); Total Protein 7.5 g/dL (6.4-8.2); Triglyceride 117 mg/dL (<150); Vitamin B12 242 pg/mL (193-986)
[2023-11-05 14:25] LABS: Iron 51 ug/dL (50-170)
[2023-11-05 14:33] LABS: Hemoglobin A1C 5.4 % (<5.7)
== END 2023-11-05 02:53 | disposition home or self-care (01) ==
LOC: LBO 02:52
PROVIDERS: PCP Family Medicine; Visit Provider Family Medicine
DX: E11.9 Type 2 diabetes mellitus without complications (principal); E03.9 Hypothyroidism, unspecified; Z00.00 Encounter for general adult medical examination without abnormal findings; I10 Essential (primary) hypertension
CPT/HCPCS: 36415; 80053; 80061; 85027; 82607; 82728; 83036; 83540; 84443

== ENCOUNTER 2024-04-28 00:42 | Outpatient (CLI) | payer BC, SELFPAY ==
--- NOTE | 2024-04-28 14:24 | DI.RAD_ITS ---
Exam(s) XR KNEE LT 4V AP,LAT,MARIXA,PAT EXAM: XR KNEE LT 4V AP,LAT,MARIXA,PAT CLINICAL HISTORY: continued left knee pain despite PT,m25.562. TECHNIQUE: 2D digital imaging was performed. COMPARISON: No exams were available for comparison FINDINGS: Four views. No evidence of fracture or joint effusion. Minimal narrowing of the medial compartment. No osteophy ya. Bone density normal. No significant osseous lesions. IMPRESSION: No acute osseous findings. No joint effusion. DATA REPOSITORY: RADIATION DOSE DELIVERED:
== END 2024-04-28 01:02 ==
LOC: DI 00:42
PROVIDERS: PCP Family Medicine; Visit Provider Family Medicine
DX: M25.562 Pain in left knee (principal)
CPT/HCPCS: 73564

== ENCOUNTER 2024-06-20 02:58 | Outpatient (CLI) | payer BC, SELFPAY ==
[2024-06-20 13:29] LABS: HCT 42.6 % (36.0-46.0); HGB 13.7 g/dL (11.2-15.7); MCH 28.7 pg (27.0-33.0); MCHC 32.2 % (32.0-36.0); MCV 89 fL (80-95); MPV 11.2 fL (8.0-11.0); Platelet Count 194 10^3/uL (130-400); RBC 4.77 10^6/uL (3.93-5.22); RDW 13.4 % (11.7-14.6); RDW-SD 44.2 fL
[2024-06-20 14:12] LABS: Ferritin 29 ng/mL (8-252); TSH (W/Ref FT4) 2.13 uIU/mL (0.36-3.74)
[2024-06-20 15:03] LABS: Iron 75 ug/dL (50-170)
== END 2024-06-20 02:59 | disposition home or self-care (01) ==
LOC: LBO 02:58
PROVIDERS: PCP Family Medicine; Visit Provider Family Medicine
DX: E03.9 Hypothyroidism, unspecified (principal); D50.9 Iron deficiency anemia, unspecified
CPT/HCPCS: 36415; 85027; 82728; 83540; 84443

== ENCOUNTER 2024-07-11 07:41 | Day surgery (SDC) | payer BC, SELFPAY ==
[2024-07-11] VITALS (31 sets, daily range): BP systolic 80–119; BP diastolic 32–89; PULSE 45–68; RESP 8–17; TEMP 36.2–36.6; O2SAT 91–100; BMI 31.0
--- NOTE | 2024-07-11 07:34 | W.PM.DSUDISC ---
Date of service: 07/11/24 Time of Service: 09:25 Discharge Plan Disposition Patient Disposition: Home Condition: Good Discharge Details Reason For Visit: Left knee internal derangement Attending Provider: Manolo Sow Primary Care Provider: Kaylee Bangura Home Meds and New Rx's Prescriptions: New acetaminophen 500 mg tablet 500 mg PO Q6H PRN (Reason: pain) Qty: 60 2RF hydrocodone-acetaminophen 5-325 mg tablet 1 tab PO Q6H PRN (Reason: severe pain) Qty: 6 0RF Rx Instructions: Take one tablet up to every 6 hours as needed for severe postoperative pain ibuprofen 600 mg tablet 600 mg PO TID PRN (Reason: pain) Qty: 60 0RF Continued Mirena 21 mcg/24 hours (8 yrs) 52 mg intrauterine device 1 device intrauterine ONCE Qty: 1 0RF Rx Instructions: as a single dose levothyroxine 150 mcg tablet 150 mcg PO DAILY Qty: 90 3RF liothyronine 5 mcg tablet 5 mcg PO DAILY Qty: 90 3RF Discharge Instructions Stand Alone Forms: [facility] Knee Arthroscopy Equipment/Supplies: Partial Weight Bearing Crutches Activity:: Elevate Remove Dressings/Wound Care:: 48 hours Shower/Bathe:: 48 hours Diet:: As Tolerated Discharge Orders Discharge Orders: Discharge Order (Routine); Ordered 07/11/24 Ordered By: Ivonne Lerma
--- NOTE | 2024-07-11 07:36 | ANES.PREOP_ITS ---
General Info Date of Service Date Performed: 07/11/24 Height: 5 ft 5.25 in Weight: 85.275 kg Body Mass Index (BMI): 31.0 Surgical Procedure: Operation Date: 07/11/24 11:10 Proposed Procedure Side Surgeon p Knee Arthroscopy Left Manolo Sow MD Meds Allergies and Home Medications Allergies Allergy/AdvReac Type Severity Reaction Status Date / Time clindamycin Allergy Intermediate Rash Verified 07/11/24 08:05 Penicillins Allergy Mild rash Verified 07/11/24 08:05 morphine AdvReac Severe HALLUCINATI Verified 07/11/24 08:05 ONS promethazine AdvReac Severe TONIC/CLONIC Verified 07/11/24 08:05 REACTION Home Medication ?Medication ?Instructions ?Recorded levonorgestrel 21 mcg/24 hr (up to 1 device intrauterine ONCE #1 ea 05/27/23 8 years) 52 mg intrauterine device (Mirena) levothyroxine 150 mcg tablet 150 mcg PO DAILY #90 tab-caps 11/29/23 liothyronine 5 mcg tablet 5 mcg PO DAILY #90 tab-caps 12/02/23 acetaminophen 500 mg tablet 500 mg PO Q6H PRN pain #60 tabs 07/11/24 hydrocodone 5 mg-acetaminophen 325 1 tab PO Q6H PRN severe pain #6 07/11/24 mg tablet tabs ibuprofen 600 mg tablet 600 mg PO TID PRN pain #60 tabs 07/11/24 Current Visit Medications: Current Medications Generic Name Dose Route Start Last Admin Trade Name Freq PRN Reason Stop Dose Admin Acetaminophen 1,000 mg 07/11/24 06:00 Acetaminophen 500 Mg Tab PO 07/11/24 23:59 PREOP LINDA Acetaminophen 650 mg 07/11/24 07:33 Acetaminophen 325 Mg Tab PO 08/10/24 07:32 Q4H PRN PRN Hydrocodone Bitart/Acetaminophen 0 tab 07/11/24 07:33 Hydrocodone 5/Acetaminophen 325 Tab PO 08/10/24 07:32 Q3H PRN PRN Pain Celecoxib 400 mg 07/11/24 06:00 Celecoxib 200 Mg Cap PO 07/11/24 23:59 PREOP LINDA Sodium Chloride 1,000 mls @ 30 mls/hr 07/11/24 09:15 Saline 1000ml Bag IV 08/10/24 09:14 INFUSION LINDA Ringer's Solution 1,000 mls @ 80 mls/hr 07/11/24 06:00 IV 07/11/24 23:59 INFUSION LINDA Cefazolin Sodium/Dextrose 2 gm in 50 mls @ 100 mls/hr 07/11/24 06:00 Ancef Duplex IVPB 07/11/24 23:59 PREOP LINDA Tranexamic Acid 1,000 mg/ 60 mls @ 360 mls/hr 07/11/24 07:00 Sodium Chloride IVPB 07/11/24 16:00 PREOP LINDA IV Miscellaneous Supplies 1 each 07/11/24 06:00 Iv Access IV 07/11/24 23:59 DIRECTED LINDA Sodium Chloride 0 ml 07/11/24 06:00 Normal Saline Flush 10 Ml Syr IV 07/11/24 23:59 PRN PRN Sodium Chloride 0 ml 07/11/24 06:00 Normal Saline 10 Ml Vial IJ 07/11/24 23:59 DIRECTED PRN Sterile Water 0 ml 07/11/24 06:00 Water,Injection,Sterile 10 Ml Vial IJ 07/11/24 23:59 DIRECTED PRN PFSH Active Problems Active Problems: Problem Status Onset Code Internal derangement of left knee Acute M23.92 Annual physical exam Acute Z00.00 Hypothyroidism Chronic 03/16/12 E03.9 Status post dilation and curettage Acute Z98.890 Encounter for screening colonoscopy Acute Z12.11 Family history of skin cancer Acute Z80.8 Patellofemoral arthralgia of left knee Acute M25.562 Fe deficiency anemia Acute D50.9 RUQ abdominal pain Acute R10.11 Sessile serrated polyp of colon Acute ~01/27/23 D12.6 Gastritis Acute ~01/27/23 K29.70 DUB (dysfunctional uterine bleeding) Acute N93.8 Thickened endometrium Acute R93.89 Left knee pain Acute M25.562 Shoulder pain Acute M25.519 Medical History Medical History Right foot pain Sacral back pain Mild intermittent reactive airway disease (08/20/15) Pt. denies Iron deficiency (03/16/13) Goiter (08/23/04) H/O POST GOITER; h/o hypothyroid and abnl antimicrosomal ab 2005 Gastroesophageal reflux disease (03/15/12) Surgical History Surgical History History of colonoscopy with polypectomy (~01/27/23) History of esophagogastroduodenoscopy (EGD) (~01/27/23) Hx of appendectomy Endometrial Biopsy (05/18/14) [facility] Tobacco Smoking/Tobacco Use Status: Never Passive smoking exposure: No Second hand exposure: No Alcohol Alcohol Intake: current Alcohol intake frequency: a few times a month Substance Use Substance use: Never Substance use type: does not use Prental History History 2 Para 2 Hx # Term Pregnancies Multiple births Hx # Pregnancies Ectopic pregnancies AB induced Hx Number of Living Children AB spontaneous Vital Signs and Lab Results Lab Results Blood Type / Crossmatch: No Data to Display Complete Blood Count: White Blood Count 9.10 10^3/uL (4.4-10.8) 06/20/24 13:22 Red Blood Count 4.77 10^6/uL (3.93-5.22) 06/20/24 13:22 Hemoglobin 13.7 g/dL (11.2-15.7) 06/20/24 13:22 Hematocrit 42.6 % (36.0-46.0) 06/20/24 13:22 Platelet Count 194 10^3/uL (130-400) 06/20/24 13:22 Complete Metabolic Panel: No Data to Display Liver Function Panel: No Data to Display Coagulation Panel: No Data to Display Cardiac Panel: No Data to Display Arterial Blood Gas: No Data to Display Venous Blood Gas: No Data to Display Pancreas Panel: No Data to Display Thyroid Panel: Thyroid Stimulating Hormone (TSH) 2.13 uIU/mL (0.36-3.74) 06/20 13:22 Infectious Disease: No Data to Display Blood Cultures: No Data to Display Toxicology Panel: No Data to Display Panel: No Data to Display Anesthesia Assessment and Plan Anesthesia History Personal History: No History of Anesthesia Complications Family History: No Family History of Anesthesia Complications Exercise Tolerance Exercise Tolerance: Metabolic Equivalents>4 Pertinent Negatives Pertinent Negatives: No Symptoms of GERD, No Major Cardiovascular Symptoms or Complaints and No Major Pulmonary Symptoms or Complaints Cardiac & Pulmonary Exam Cardiac Exam: Normal S1/S2 Heart Sounds Pulmonary Exam: Clear Bilateral Breath Sounds Implantable Cardiac Device Does patient have a Pacemaker or an ICD?: No Airway Exam Known Difficult Airway: No Mallampati Class: 2 Mouth Opening: Normal (> 3cm) Thyromental Distance: Greater than 3 cm Neck Range of Motion: Full ROM Neck Circumference: Normal Teeth Condition: Normal Dentition ASA Classification ASA Score: ASA 2 Emergency Case?: No NPO Status NPO Status: NPO Clears >2 hours, Solids >8 hours Status Status: Negative HCG Anesthesia Plan Resuscitation Status: Full Code Anesthesia Technique: General Anesthesia Airway Planned: LMA Monitors Used: Standard Monitors
[2024-07-11] MEDS: Acetaminophen 500 MG TAB 1000 MG PO (08:20)
[2024-07-11] MEDS: Celecoxib 200 MG CAP 400 MG PO (08:20)
[2024-07-11] MEDS: Normal Saline 1,000 ML 30 ML IV (08:27)
[2024-07-11] MEDS: ceFAZolin 2 GM/50 ML BAG IVPB (09:06)
[2024-07-11] MEDS: Bupivacaine 0.25% Pres-Free 30 ML VIAL (09:22)
--- NOTE | 2024-07-11 09:24 | W.PM.DSUDISC ---
Date of service: 07/11/24 Time of Service: 09:24 Discharge Plan Disposition Patient Disposition: Home Condition: Good Discharge Details Reason For Visit: Left knee internal derangement Attending Provider: Manolo Sow Primary Care Provider: Kaylee Bangura Home Meds and New Rx's Prescriptions: New acetaminophen 500 mg tablet 500 mg PO Q6H PRN (Reason: pain) Qty: 60 2RF hydrocodone-acetaminophen 5-325 mg tablet 1 tab PO Q6H PRN (Reason: severe pain) Qty: 6 0RF Rx Instructions: Take one tablet up to every 6 hours as needed for severe postoperative pain ibuprofen 600 mg tablet 600 mg PO TID PRN (Reason: pain) Qty: 60 0RF Continued Mirena 21 mcg/24 hours (8 yrs) 52 mg intrauterine device 1 device intrauterine ONCE Qty: 1 0RF Rx Instructions: as a single dose levothyroxine 150 mcg tablet 150 mcg PO DAILY Qty: 90 3RF liothyronine 5 mcg tablet 5 mcg PO DAILY Qty: 90 3RF Discharge Instructions Stand Alone Forms: [facility] Knee Arthroscopy Equipment/Supplies: Partial Weight Bearing Crutches Activity:: Elevate Remove Dressings/Wound Care:: 48 hours Shower/Bathe:: 48 hours Diet:: As Tolerated Discharge Orders Discharge Orders: Discharge Order (Routine); Ordered 07/11/24 Ordered By: Ivonne Lerma
[2024-07-11] MEDS: EPINEPHrine 10 MG/10 ML ML (09:36)
[2024-07-11] MEDS: HYDROmorphone 1 MG/ML SYR IVP ×3 (10:06→10:35)
--- NOTE | 2024-07-11 10:10 | W.PM.OP ---
Operative Note Operative Note PRE-OP DIAGNOSIS: Left Knee Internal Derangement POST-OP DIAGNOSIS: other (Grade III/IV chondromalacia medial femur, complex right medial meniscal tear, grade 3 trochlear chondromalacia) PROCEDURE: Left knee arthroscopic partial medial meniscectomy, medial chondroplasty SURGEON: Manolo Sow ANESTHESIA TYPE: General LMA/ETT Refer to Anesthesia Record ESTIMATED BLOOD LOSS: 0 PATHOLOGY: none sent COMPLICATIONS: None Patient was transported to: PACU Patient's condition: stable Indications: I have seen Dorothea in clinic for ongoing left knee pain. She had some improvement with intra-articular injections and with other nonoperative treatments but continued to be limited by pain about the left knee, clinically consistent with a meniscal tear, although MRI negative. Nonoperative measures were exhausted but disability and pain persisted. I discussed knee arthroscopy for diagnosis and likely meniscal treatment depending on the findings. I reviewed the risks of the procedure to include, but not limited to, bleeding, infection, pain, stiffness, damage to nerves or vessels, recurrence, blood clot. Despite these risks, the patient elected to proceed. Findings: A diagnostic arthroscopy was performed with the following findings: Suprapatellar Pouch: No significant inflammation, No loose bodies Medial Compartment: Complex medial meniscal tear, Intact meniscal root, focal area approximately 4 x 10 mm at the posterior aspect of the distal medial femur of grade III/IV chondromalacia, No loose bodies Notch: ACL and PCL were intact Lateral Compartment: No meniscal tear, Intact meniscal root, No significant chondromalacia or signs of arthritis, No loose bodies Patellofemoral Compartment: Grade III chondromalacia about the trochlea, No apparent patellar maltracking Procedure Description: Dorothea was greeted in the preoperative holding area where the correct side was identified and marked. The consent was reviewed with the patient and signed. The history and physical was updated. All questions were answered. She was taken back to the operating room. The patient was placed into the supine position on the operating room table. All bony prominences were well padded. Prophylactic antibiotics in the form of Cefazolin were administered. The left leg was then prepped with Chloraprep and draped in a standard fashion with stockinette and extremity drape. A timeout to confirm correct identity, side and site, procedure, allergies, anesthesia, and medical concerns was performed. The leg was placed into a pneumatic leg monroy, [id number]. A standard lateral portal was made at the lateral border of the patella tendon in line with the inferior pole of the patella, soft spot. The skin and deep tissue was incised sharply and the blunt trochar was inserted atraumatically. A diagnostic arthroscopy was performed and the findings are listed above. The suprapatellar pouch had no significant inflammatory change. The patellofemoral articulation showed grade III chondromalacia about the central portion of the trochlea as well as good tracking. The lateral gutter had no loose bodies and the medial gutter had no loose bodies. The knee was brought into some valgus stress in extension to open the medial compartment. A medial portal was made, localized by a spinal needle. The portal was created with an #11 blade through skin and capsule under direct visualization avoiding any meniscal injury. A probe was then inserted into the medial compartment. The medial compartment was fully inspected. The chondral surface of the tibia showed no significant chondromalacia and the surface of the femur showed an area approximate 4 x 10 mm of grade III/IV chondromalacia, down to cartilage substrate or bone, about the distal?posterior aspect of the medial femur. The edges of this cartilage lesion also had some loose flaps approximately 3 mm. The medial meniscus had a complex meniscal tear with loose fragments extending from the anterior body through the posterior horn. After evaluation, the meniscus was debrided down to a stable base using a series of biters and arthroscopic milad. It was probed afterwards to confirm that the tear had been removed and the meniscus was stable. Cartilage surfaces were debrided of any flaps, leaving any intact fibers. The notch was then inspected which showed an intact ACL and an intact PCL. The leg was then brought into a figure of 4 position. The lateral compartment was fully inspected with the arthroscope and a probe. The chondral surface of the lateral femur showed no significant chondromalacia. The chondral surface of the lateral tibia showed no significant chondromalacia. The lateral meniscus had no meniscal tear. The arthroscope was brought back into the suprapatellar pouch and the leg was in full extension. The knee was thoroughly irrigated with the arthroscopic fluid on high flow and pressure. Inflow was stopped and excess fluid was removed. The wounds were closed with 4-0 Nylon. They were dressed with Xeroform, 4x4 gauze, ABD pad, Kerlix and an ERIKA wrap. A cryo-cuff was applied. The patient tolerated the procedure well and was returned to the Same Day Surgery area in a stable condition suffering no known complication. Date of Procedure: 07/11/24
[2024-07-11] MEDS: fentaNYL 100 MCG/2 ML VIAL IVP (10:45)
[2024-07-11] MEDS: HYDROcodone 5/Acetaminophen 325 TAB PO (11:31)
--- NOTE | 2024-07-11 11:49 | W.ANESPOSTOP ---
Postoperative Evaluation Date, Time and Location Date Performed: 07/11/24 Time Performed: 11:49 Patient Location: Day Surgery Unit Vital Signs Most Recent Imported Vital Signs: Most Recent Vital Signs Temp Pulse Resp BP Pulse Ox 36.4 C L 55 L 16 111/89 100 07/11/24 11:29 07/11/24 11:29 07/11/24 11:29 07/11/24 11:29 07/11/24 11:29 Pain Score Most Recent Pain Score: Most Recent Pain Score Pain Level 4 07/11/24 11:29 Assessment Mental Status: Awake (Alert & Oriented to Patient Baseline) Airway and Respiratory Function: Patent airway with normal (patient baseline) respiratory exam Cardiovascular Function: Hemodynamically Stable Hydration Status: Adequately Hydrated Nausea & Vomiting: No Nausea or Vomiting Pain: Pain is Moderate or Severe Postoperative Pain Management: Pain being addressed with medication (is receiving oral medication from [facility]SU RN. I'm feeling more than I'd like to be feeling) Peripheral Nerve Block: Patient did not receive a nerve block
== END 2024-07-11 13:25 | disposition home or self-care (01) ==
LOC: SUR 07:41
PROVIDERS: PCP Family Medicine; Visit Provider Student in an Organized Health Care Education/Training Program
PROC: (CPT 29870; principal; 2024-07-11 11:00)
DX: M23.232 Derangement of other medial meniscus due to old tear or injury, left knee (principal); M94.262 Chondromalacia, left knee
CPT/HCPCS: 29881; 81025; J0665; J0690; J1100; J1171; J2003; J2405; J2704; J3010

== ENCOUNTER 2024-11-20 01:50 | Outpatient (CLI) | payer BC, SELFPAY ==
[2024-11-20 15:29] LABS: HCT 42.5 % (36.0-46.0); HGB 13.5 g/dL (11.2-15.7); MCH 29.1 pg (27.0-33.0); MCHC 31.8 % (32.0-36.0); MCV 92 fL (80-95); MPV 11.1 fL (8.0-11.0); Platelet Count 160 10^3/uL (130-400); RBC 4.64 10^6/uL (3.93-5.22); RDW-SD 43.2 fL; WBC 9.86 10^3/uL (4.4-10.8)
[2024-11-20 16:55] LABS: Anion Gap 8.5 mmol/L (3-11); BUN 21 mg/dL (7-18); CO2 29.5 mmol/L (21.0-32.0); CREATININE 1.1 mg/dL (0.55-1.02); Chloride 106 mmol/L (98-107); Estimated GFR 62.37 (mL/min/1.73m2); Glucose 87 mg/dL (74-106); Potassium 3.9 mmol/L (3.5-5.1); Sodium 144 mmol/L (136-145)
== END 2024-11-20 01:51 | disposition home or self-care (01) ==
LOC: LBO 01:50
PROVIDERS: PCP Family Medicine; Visit Provider Student in an Organized Health Care Education/Training Program
DX: M17.12 Unilateral primary osteoarthritis, left knee (principal); Z01.818 Encounter for other preprocedural examination
CPT/HCPCS: 36415; 80048; 85027

== ENCOUNTER 2024-11-20 16:02 | Outpatient (CLI) | payer BC, SELFPAY ==
--- NOTE | 2024-11-20 14:30 | DI.RAD_ITS ---
Exam(s) XR STANDING ALIGNMENT EXAM: XR STANDING ALIGNMENT CLINICAL HISTORY: DJD OF KNEE. TECHNIQUE: 2D digital imaging was performed. COMPARISON: CR XR KNEE LT 4V AP,LAT,MARIXA,PAT from 04/28/2024 FINDINGS: 3 views No fractures nor osseous lesions. Hips and sacroiliac joints appear unremarkable. No evidence of pe lvic tilting. There are mild degenerative changes in the medial compartments of both knees. On the left side this appears similar to images of 04/28/2024. Lateral compartments bilaterally appear unremarkable. Ankl es unremarkable. Talar domes unremarkable. Bone density normal. No osseous lesions. IMPRESSION: Mild degenerative changes in the medial compartments of both knees. DATA REPOSITORY: RADIATION DOSE DELIVERED:
== END 2024-11-20 16:03 | disposition home or self-care (01) ==
LOC: DIORS 16:02
PROVIDERS: PCP Family Medicine; Visit Provider Student in an Organized Health Care Education/Training Program
DX: M17.0 Bilateral primary osteoarthritis of knee
CPT/HCPCS: 77073

== ENCOUNTER 2024-11-24 11:34 | Outpatient (CLI) | payer BC, SELFPAY ==
--- NOTE | 2024-11-24 11:15 | DI.MAMMO_ITS ---
Exam(s) MAMMO SCREENING EXAM: MAMMO SCREENING CLINICAL HISTORY: screening,z12.39. TECHNIQUE: Bilateral full field digital CC and MLO mammographic images were obtained with 3D tomosyn thesis and utilizing computer aided detection (CAD). COMPARISON: Prior baseline mammogram of May 2017 was reviewed as was diagnostic left breast mamm ogram of November 2017. Prior breast ultrasound May 2017 was also reviewed. FINDINGS: There has been no significant change in the appearance and distribution of the fibroglandular tissue. There are no CAD designations. There are no new spiculated masses nor malignant appearing microcalcification groups. There is no significant architectural distortion nor skin thickening-retraction. IMPRESSION: No radiographic evidence of malignancy. BI-RADS Category 1 - Negative Breast Density - Category B - Scattered areas of fibroglandular density Breast density Category C or D implies that the patient has dense breast tissue. Dense breast tissue can make it harder to find cancer on a mammogram. Dense breast tissue is also associated with an incr eased risk of breast cancer. This information about the result of the mammogram report was provided to the patient to raise their awareness. Use this report when you speak with the patient about their risks for breast cancer, which includes their family history. At that time, you may recommend additional screening tests (Ultrasoun d or MRI) as these tests may add significant information. A negative radiographic report should not delay biopsy if a dominant or clinically suspicious mass is present. Up to ten percent of cancers are not identified on mammography. A negative report may reinforce clinical impression. Adenosis and dense breasts may obscure an underlying neoplasm. False positive reports average 6 to 10%. Patient will receive a letter notifying them of these results.
== END 2024-11-24 11:54 ==
LOC: DI 11:34
PROVIDERS: PCP Family Medicine; Visit Provider Family Medicine
DX: Z12.31 Encounter for screening mammogram for malignant neoplasm of breast (principal); R92.323 Mammographic fibroglandular density, bilateral breasts
CPT/HCPCS: 77063; 77067

== ENCOUNTER 2024-12-05 07:17 | Day surgery (SDC) | payer BC, SELFPAY ==
[2024-12-05] VITALS (20 sets, daily range): BP systolic 83–132; BP diastolic 48–86; PULSE 63–79; RESP 9–22; TEMP 36.1–37.1; O2SAT 91–100; BMI 32.1
--- NOTE | 2024-12-05 06:21 | W.ANESPRE ---
General Info Date of Service Date Performed: 12/05/24 Height: 5 ft 5.25 in Weight: 88.167 kg Body Mass Index (BMI): 32.1 Surgical Procedure: Operation Date: 12/05/24 09:25 Proposed Procedure Side Surgeon p Knee Total Arthroplasty, Cementless CR Left Manolo Sow MD Meds Allergies and Home Medications Allergies Allergy/AdvReac Type Severity Reaction Status Date / Time clindamycin Allergy Intermediate Rash Verified 12/05/24 07:32 Penicillins Allergy Mild rash Verified 12/05/24 07:32 morphine AdvReac Severe HALLUCINATI Verified 12/05/24 07:32 ONS promethazine AdvReac Severe TONIC/CLONIC Verified 12/05/24 07:32 REACTION Home Medication ?Medication ?Instructions ?Recorded levonorgestrel 21 mcg/24 hr (up to 1 device intrauterine ONCE #1 ea 05/27/23 8 years) 52 mg intrauterine device (Mirena) levothyroxine 150 mcg tablet 150 mcg PO DAILY #90 tab-caps 11/23/24 liothyronine 5 mcg tablet 5 mcg PO DAILY #90 tab-caps 11/23/24 acetaminophen 500 mg tablet 1,000 mg (2 x 500 mg) PO Q8H PRN 12/05/24 pain #90 tabs aspirin 81 mg tablet,delayed 81 mg PO BID 30 days #60 tabs 12/05/24 release celecoxib 200 mg capsule (Celebrex) 200 mg PO BID PRN #60 caps 12/05/24 dexamethasone 4 mg tablet 4 mg PO DAILY #2 tabs 12/05/24 docusate sodium 100 mg capsule 100 mg PO BID #28 caps 12/05/24 (Colace) gabapentin 300 mg capsule 300 mg PO QHS #14 caps 12/05/24 oxycodone 5 mg tablet 5 mg PO Q4H PRN #18 tabs 12/05/24 pantoprazole 40 mg tablet,delayed 40 mg PO DAILY #14 tabs 12/05/24 release Current Visit Medications: Current Medications Generic Name Dose Route Start Last Admin Trade Name Freq PRN Reason Stop Dose Admin Acetaminophen 1,000 mg 12/05/24 06:00 Acetaminophen 500 Mg Tab PO 12/05/24 23:59 PREOP LINDA Celecoxib 400 mg 12/05/24 06:00 Celecoxib 200 Mg Cap PO 12/05/24 23:59 PREOP LINDA Gabapentin 300 mg 12/05/24 06:00 Gabapentin 300 Mg Cap PO 12/05/24 23:59 PREOP LINDA Ringer's Solution 1,000 mls @ 80 mls/hr 12/05/24 06:00 IV 12/05/24 23:59 INFUSION LINDA Cefazolin Sodium/Dextrose 2 gm in 50 mls @ 100 mls/hr 12/05/24 06:00 Ancef Duplex IVPB 12/05/24 23:59 PREOP LINDA Tranexamic Acid/Sodium Chloride 1,000 mg in 100 mls @ 600 mls/hr 12/05/24 06:00 IVPB 12/05/24 23:59 DIRECTED LINDA IV Miscellaneous Supplies 1 each 12/05/24 06:00 Iv Access IV 12/05/24 23:59 DIRECTED LINDA Sodium Chloride 0 ml 12/05/24 06:00 Normal Saline Flush 10 Ml Syr IV 12/05/24 23:59 PRN PRN Sodium Chloride 0 ml 12/05/24 06:00 Normal Saline 10 Ml Vial IJ 12/05/24 23:59 DIRECTED PRN Sterile Water 0 ml 12/05/24 06:00 Water,Injection,Sterile 10 Ml Vial IJ 12/05/24 23:59 DIRECTED PRN PFSH Active Problems Active Problems: Problem Status Onset Code Intermittent palpitations Acute R00.2 DJD (degenerative joint disease) of knee Acute M17.9 H/O arthroscopy of left knee Acute 07/11/24 Z98.890 Chondromalacia, left knee Acute M94.262 Tear of medial meniscus of left knee Acute S83.242A Internal derangement of left knee Acute M23.92 Annual physical exam Acute Z00.00 Hypothyroidism Chronic 03/16/ E03.9 Status post dilation and curettage Acute Z98.890 Encounter for screening colonoscopy Acute Z12.11 Family history of skin cancer Acute Z80.8 Patellofemoral arthralgia of left knee Acute M25.562 Fe deficiency anemia Acute D50.9 RUQ abdominal pain Acute R10.11 Sessile serrated polyp of colon Acute ~0607/ D12.6 Gastritis Acute ~01/27/23 K29.70 DUB (dysfunctional uterine bleeding) Acute N93.8 Thickened endometrium Acute R93.89 Left knee pain Acute M25.562 Shoulder pain Acute M25.519 Medical History Medical History Right foot pain Sacral back pain Mild intermittent reactive airway disease (08/20/15) Pt. denies Iron deficiency (03/16/13) Goiter (08/23/04) H/O POST GOITER; h/o hypothyroid and abnl antimicrosomal ab 2005 Gastroesophageal reflux disease (03/15/12) Surgical History Surgical History History of colonoscopy with polypectomy (~01/27/23) History of esophagogastroduodenoscopy (EGD) (~01/27/23) Hx of appendectomy Endometrial Biopsy (05/18/14) [facility] Tobacco Smoking/Tobacco Use Status: Never Passive smoking exposure: No Second hand exposure: No Alcohol Alcohol Intake: current Alcohol intake frequency: a few times a month Substance Use Substance use: Never Substance use type: does not use Prental History History 2 Para 2 Hx # Term Pregnancies Multiple births Hx # Pregnancies Ectopic pregnancies AB induced Hx Number of Living Children AB spontaneous Vital Signs and Lab Results Lab Results Blood Type / Crossmatch: No Data to Display Complete Blood Count: White Blood Count 9.86 10^3/uL (4.4-10.8) 11/20/24 15:15 Red Blood Count 4.64 10^6/uL (3.93-5.22) 11/20/24 15:15 Hemoglobin 13.5 g/dL (11.2-15.7) 11/20/24 15:15 Hematocrit 42.5 % (36.0-46.0) 11/20/24 15:15 Platelet Count 160 10^3/uL (130-400) 11/20/24 15:15 Complete Metabolic Panel: Sodium 144 mmol/L (136-145) 11/20/24 15:15 Potassium 3.9 mmol/L (3.5-5.1) 11/20/24 15:15 Chloride 106 mmol/L (98-107) 11/20/24 15:15 Carbon Dioxide 29.5 mmol/L (21.0-32.0) 11/20/24 15:15 BUN 21 mg/dL (7-18) H 11/20/24 15:15 Creatinine 1.1 mg/dL (0.55-1.02) H 11/20/24 15:15 Est GFR (CKD-EPI 2020) 62.37 (mL/min/1.73m2) 11/20/24 15:15 Calcium 9.0 mg/dL (8.5-10.1) 11/20/24 15:15 Glucose 87 mg/dL (74-106) 11/20/24 15:15 Liver Function Panel: No Data to Display Coagulation Panel: No Data to Display Cardiac Panel: No Data to Display Arterial Blood Gas: No Data to Display Venous Blood Gas: No Data to Display Pancreas Panel: No Data to Display Thyroid Panel: No Data to Display Infectious Disease: No Data to Display Blood Cultures: No Data to Display Toxicology Panel: No Data to Display Panel: No Data to Display Anesthesia Assessment and Plan Anesthesia History Personal History: No History of Anesthesia Complications Family History: No Family History of Anesthesia Complications Exercise Tolerance Exercise Tolerance: Metabolic Equivalents>4 Cardiac & Pulmonary Exam Cardiac Exam: Normal S1/S2 Heart Sounds Pulmonary Exam: Clear Bilateral Breath Sounds Implantable Cardiac Device Does patient have a Pacemaker or an ICD?: No Airway Exam Known Difficult Airway: No Mallampati Class: 2 Mouth Opening: Normal (> 3cm) Thyromental Distance: Greater than 3 cm Neck Range of Motion: Full ROM Neck Circumference: Normal Teeth Condition: Normal Dentition ASA Classification ASA Score: ASA 2 Emergency Case?: No NPO Status NPO Status: NPO Clears >2 hours, Solids >8 hours Status Status: Negative HCG Anesthesia Plan Resuscitation Status: Full Code Anesthesia Technique: Spinal Anesthesia Airway Planned: Natural Airway Pain Management: Surgeon and patient request nerve block Monitors Used: Standard Monitors Preoperative Comments:: 49 yo female for TKA. Sig PMHx: palpitations, RAD, gastritis/GERD (doing well), hypothyroid (levothyroxine/liothyronine), back pain. Previous Anes: - Knee scope, LMA 4, no issues. - D/c hysteroscopy, LMA 4 no issues. - EGD/colo, topical lido, prop, no issues. Discussed spinal vs GA, would like spinal.
--- NOTE | 2024-12-05 07:22 | PDOC.DSDIS_ITS ---
Date of service: 12/05/24 Discharge Plan Disposition Patient Disposition: Home Condition: Good Discharge Details Reason For Visit: Left knee DJD Attending Provider: Manolo Sow Primary Care Provider: Kaylee Bangura Home Meds and New Rx's Prescriptions: New acetaminophen 500 mg tablet 1,000 mg PO Q8H PRN Qty: 90 0RF Rx Instructions: Take two tablets up to every 8 hours as needed for pain aspirin 81 mg tablet,delayed release (DR/EC) 81 mg PO BID 30 Days Qty: 60 0RF celecoxib [Celebrex] 200 mg capsule 200 mg PO BID PRNQty: 60 0RF Rx Instructions: Take one tablet twice daily for pain and inflammation docusate sodium [Colace] 100 mg capsule 100 mg PO BID Qty: 28 0RF pantoprazole 40 mg tablet,delayed release (DR/EC) 40 mg PO DAILY Qty: 14 0RF dexamethasone 4 mg tablet 4 mg PO DAILY Qty: 2 0RF Rx Instructions: Take one tablet once daily for two days gabapentin 300 mg capsule 300 mg PO QHS Qty: 14 0RF Rx Instructions: Take one tablet at bedtime oxycodone 5 mg tablet 5 mg PO Q4H PRNQty: 18 0RF Rx Instructions: Take one tablet up to every 4 hours as needed for severe postoperative pain Continued Mirena 21 mcg/24 hours (8 yrs) 52 mg intrauterine device 1 device intrauterine ONCE Qty: 1 0RF Rx Instructions: as a single dose levothyroxine 150 mcg tablet 150 mcg PO DAILY Qty: 90 3RF liothyronine 5 mcg tablet 5 mcg PO DAILY Qty: 90 3RF Discharge Instructions Additional Instructions: Total Knee Discharge Instructions Activity: The most important activity is to walk and to work on gentle motion ( both flexion and extension). You should try to take short walks a few times a day. It is important that when resting you work on keeping the knee straight. Avoid putting a pillow behind the knee as this will encourage flexion. Work on range of motion exercises as provided by Physical Therapy. - Start outpatient physical therapy within 2 weeks. - You should wear the JOYCE hose on both legs for 2 weeks. You may remove these at night. You may also use any compression sock in place of the JOYCE hose. - Utilize [employer] to review exercises, see videos on exercises and obtain basic information pertaining to your surgery and your recovery. Dressing: Remove the Cruz wrap by 2 days after your surgery and put on the JOYCE stocking given to you from the hospital. Keep the surgical dressing (underneath the CRUZ wrap) in place for at least one week. After the first week it may be removed and replaced with light gauze and tape or nothing. The wound and dressing may get wet after 3 days but avoid soaking the dressing or otherwise it will need to be changed. Many people prefer covering the dressing with cling wrap (saran wrap) to minimize it from getting soaked. If it gets wet, just pat dry. If it starts to peel off then it will need to be changed. Medications: - You should take Tylenol and anti-inflammatory Celebrex as your primary pain control medications. If the Celebrex is too expensive or not covered, please call the office for another alternative (Advil/Ibuprofen or Naproxen/Aleve) - You have been prescribed a stronger pain medication Oxycodone for breakthrough pain, take as needed as prescribed. - You have also been prescribed a stomach acid reduction agent Pantoprozole to help reduce stomach acid and reflux. - You have been prescribed Gabapentin to take at night for restlessness and nerve pain. - You will be taking Aspirin 81mg twice a day for DVT prevention unless instructed otherwise. - You have also been prescribed Decadron to take to control post-operative nausea and pain. You will start this tomorrow. - If you have constipation you should take Colace (which has been prescribed) or Miralax (which is available [id number]). It takes most people 3-4 days to have a bowel movement. Follow-up: 2 weeks If you have any acute concerns or questions, please do not hesitate to contact the office at [phone]. You may contact Dr. Sow with any questions after hours through the hospital at [phone] or on his cell phone at [phone]. Referrals: Manolo Sow MD [ [facility] STAFF PHYSICIAN] - Equipment/Supplies: Walker Activity:: Elevate Remove Dressings/Wound Care:: Do Not Remove Shower/Bathe:: Cover Diet:: As Tolerated Discharge Orders Discharge Orders: Discharge Order (Routine); Ordered 12/05/24 Ordered By: Ivonne Lerma
[2024-12-05] MEDS: Gabapentin 300 MG CAP PO (07:44)
[2024-12-05] MEDS: Acetaminophen 500 MG TAB 1000 MG PO (07:44)
[2024-12-05] MEDS: Celecoxib 200 MG CAP 400 MG PO (07:44)
[2024-12-05] MEDS: Lactated Ringers 1,000 ML 80 ML IV (07:50)
--- NOTE | 2024-12-05 08:23 | W.ANESNERVE ---
Nerve Block Single Injection Procedure Date and Time Date Performed: 12/05/24 Procedure Start: 08:15 Location Where Procedure Performed Procedure Location: Day Surgery Unit Reason Performed: Postoperative Analgesia Requesting Provider: Manolo Sow Timeout Performed Timeout Performed: Yes Monitoring Used ECG, Blood Pressure and SpO2 Sterility Sterility: Hand Hygiene, Surgical Cap, Surgical Mask, Sterile Gloves and Chlorhexidine Sedation Given During Procedure Sedation Given (Indicate Dose Given): Versed IV Dose:: 2 mg Patient Mental Status Patient Mental Status: Sedate with meaningful communication Nerve Block 1st Nerve Block: Laterality: Left Block Type: Adductor Canal Ultrasound Image Saved?: Yes Needle / Catheter Used: 100mm SonoPlex II Local Anesthetic Bolus (Indicate Dose Given): Lidocaine used for local infiltration of skin and Bupivacaine 0.25% Dose:: 10 mL Additives (Indicate Dose Given): None Ultrasound: Sterile probe cover and gel used Nerve Stimulator: Supplement to Ultrasound use and No twitch or parasthesia noted < 0.5 mA Paresthesia: None Procedure Tolerated: No Complications Procedure Outcome: Successful Performed By: Maynor Guerrero 2nd Nerve Block: Laterality: Left Block Type: Other (anterior femoral cutaneous ) Ultrasound Image Saved?: Yes Needle / Catheter Used: 100mm SonoPlex II Local Anesthetic Bolus (Indicate Dose Given): Bupivacaine 0.25% Dose:: 5 mL Additives (Indicate Dose Given): None Ultrasound: Sterile probe cover and gel used Nerve Stimulator: Supplement to Ultrasound use and No twitch or parasthesia noted < 0.5 mA Paresthesia: None Procedure Tolerated: No Complications Procedure Outcome: Successful Performed By: Maynor Guerrero
[2024-12-05] MEDS: ceFAZolin 2 GM/50 ML BAG IVPB (08:45)
[2024-12-05] MEDS: TRANEXAMIC ACID/SOD. CHL. 1,000 MG/100 ML BAG 600 MG IVPB (08:57)
--- NOTE | 2024-12-05 10:15 | W.PM.OP ---
Operative Note Operative Note PRE-OP DIAGNOSIS: Left Knee Osteoarthritis POST-OP DIAGNOSIS: same PROCEDURE: Left Total Knee Replacement SURGEON: Manolo Sow CONCRETE WORKER: Ivonne Lerma ANESTHESIA TYPE: Spinal Refer to Anesthesia Record ESTIMATED BLOOD LOSS: 100 PATHOLOGY: none sent TOURNIQUET TIME: 0 COMPLICATIONS: None Patient was transported to: PACU Patient's condition: stable Implants: 1. Depuy Attune Cementless Cruciate Retaining Femoral Component, Size 6 2. Depuy Attune Cementless Fixed Bearing Tibial Component, Size 5 3. Depuy Attune 6x7mm CR/FB Poly 4. Depuy Attune Patellar Component, Size 35 Indications: I have seen Dorothea in clinic for symptoms of knee arthritis, confirmed with radiographic findings. She has exhausted nonoperative methods and was having significant limitations in daily function and desired better function and less pain. I discussed the technical details of a knee replacement. I explained the risks of the procedure to include, but not limited to, bleeding, infection, pain, stiffness, fracture, damage to nerves and vessels, damage to muscles and tendons, loosening, need for repeat procedure, blood clot and cardiopulmonary demise. Despite these risks, she elected to proceed. Findings: There was significant signs of arthritis throughout the knee invovling the medial femur and trochlea mostly. Procedure Description: Dorothea was greeted in the preoperative holding area where the correct side was identified and marked. The consent was reviewed with the patient and signed. The history and physical was updated. All questions were answered. Preoperative medications were administered: Acetaminophen 1000mg, Celebrex 400mg, and Gabapentin 300mg. An adductor canal block was then administered by the anesthesia team in the DSU. She was taken back to the operating room. A spinal anesthestic was then administered. The patient was placed into the supine position on the operating room table. Posts were placed for positioning during the procedure. All bony prominences were well padded. Prophylactic antibiotics in the form of Cefazolin were administered. 1g of Tranxemic Acid was given intravenously within 30 minutes of incision. The left leg was then prepped with Chloraprep and draped in a standard fashion with impervious stockinette. A second prep with Chloraprep was performed prior to application of Iodine impregnated skin protection. A timeout to confirm correct identity, side and site, procedure, allergies, anesthesia, and medical concerns was performed. With the knee in some flexion, a midline incision was made overlying the knee. Full thickness skin flaps were raised once the extensor mechanism was encountered. These were raised medially and laterally. Any bleeding was controlled with electrocautery. Once the extensor mechanism was fully exposed, a medial parapatellar arthrotomy was performed in a flexed position. All bleeding from the arthrotomy and the geniculate arteries was coagulated. A medial subperiosteal peel was performed with electrocautery to the midcoronal plane. The fat pad was removed while keeping the patellar tendon protected. The anterior distal femur synovium was removed for later visualization. The ACL and PCL were resected and the anterior horn of the lateral meniscus was transected. The knee was then flexed with the patella everted. Using a step drill, and based on preoperative templating, the femoral canal was entered. This was done with a step drill without any difficulty. The intramedullary distal femoral cut guide was inserted, set to a 6 degree valgus cut and 9mm cut thickness. The distal femoral cut guide was then held in position and pinned. With the soft tissues protected, the distal cut was performed. This was passed over a few times to ensure a planar cut. I then turned attention to the tibia. The extramedullary guide was placed onto the leg. The distal aspect was slid medial to adjust for position of center of ankle and stay in line with shaft of the tibia. Approximately 3-5 degrees of posterior slope was kept in the proximal cutting guide. The center of the guide was aligned with the PCL. The stylus was used to assess cut thickness. The medial side, most involved side, was set for a 7mm cut, corresponding to 9mm laterally. This was then held in position and pinned into place with 2 additional pins and a cross pin for stability. The medial and lateral collateral ligaments were protected and the cut was performed. With this completed, it was assessed and noted to be of appropriate dimensions. The guide was removed. A spacer block was inserted and the knee was brought into extension. The 7mm spacer block provided full extension, without hyperextension and with stability of both the medial and lateral collateral ligaments was assessed. The pins from the femur and the tibia were then removed. The distal femur was then sized. The anterior stylus was placed onto the lateral ridge of the anterior femur. This indicated a size 6 femur. The external rotation of the guide was adjusted to 3 degrees to match the epicondylar axis, perpendicular to Mccreary?s line. The 4-in-1 cutting guide was the placed. The posterior medial femur cut was evaluated and appeared of good thickness. The spacer block was inserted underneath the cutting guide and stability was confirmed in 90 degrees of flexion. An hannah wing was used to confirm appropriate position of the anterior cut to avoid notching. This cutting guide was ensured to be flush on the cut surface and then pinned into place with headed pins. While protecting the soft tissues, quad tendon, and collateral ligaments, the anterior and posterior cuts were performed with a saw. The central two pins were removed and the posterior and anterior chamfers were cut next. The notch-cutting guide was placed. This was pinned to lateralize the femoral component as much as possible while keeping it flush on the cut surface. This was then pinned into position. A reciprocating saw was used to make the notch cut. A rasp smoothed the cut surfaces. The medial and lateral menisci were removed. A trial femoral component was then inserted, impacted down to the cut surfaces, and the lug holes were drilled. A provisional trial tibial component was placed and the knee was brought through range of motion. There was noted to be excellent extension and flexion. There was no significant instability. The patella was tracking without thumbs. A size 7mm polyethylene component provided the best range of motion and stability with less than 2mm gapping with medial and lateral stress and full extension without significant hyperextension. The tibial cut surface was fully exposed. The tibia was then sized as a 5. The tibia had been previously marked during trialing to correspond to the center of the tibial component to help with rotation. The trial was aligned to this fanny, approximately rotated to the medial 1/3rd of the tibial tubercle. The trial was pinned into place. The tibia was prepared with a reamer and a keel punch and lug holes. The knee was then brought into extension and the patella was measured as 23mm. Using the patellar clamp and cut guide, this was resected to a flat surface with at least 13mm of thickness remaining. The size 35 patella fit the best. This was oriented and then clamped into position. The lugs were drilled. The trial components were removed. The final components were opened on the back table. The periosteal and capsular tissues, especially posteriorly, around the knee were then systematically injected with a periarticular cocktail consisting of 246mg of Ropivacaine, 0.5mg of Epinephrine, 0.08mg of Clonidine, and 30mg of Ketorolac, diluted to 100cc. On the back table, with the implants opened. The cement was mixed. One batch of high viscosity cement was prepared with vacuum assistance. After the cement was ready a small amount was placed on the cut surface of the patella and the patellar button was clamped into position and held. The cementless knee components were placed. Starting with the tibial component, the tibia was subluxed anteriorly and the lug holes of the component were lined up. The tibia was then impacted with an impactor and mallet until the tibial component was in contact with the tibia. The final polyethylene component was inserted. Then, the femoral component was inserted. The lug holes were aligned and the component was impacted into position. The knee was irrigated with Surgiphor Betadine solution. This was allowed to sit in the knee for 3 minutes and then it was irrigated out with saline. After the cement had finally cured, approximately 15min, the clamp was removed from the patella and the knee was taken through range of motion. The patella was tracking with a no-thumbs technique. The capsule was then reapproximated with a No. 1 Vicryl at multiple locations. The capsule was finally closed with a No. 2 Stratafix, barbed suture. Deep tissues were then reapproximated with 0 Vicryl and 2-0 Vicryl. The skin was closed with a running 3-0 Monocryl in a subcuticular fashion. This was reinforced with skin glue. A Mepilex silver dressing was applied along with a [id number] ERIKA wrap. A CryoCuff was applied. Dorothea was transferred to the hospital bed without difficulty an suffering no apparent complication. Dorothea has a good prognosis. Physical therapy will start today and without restrictions, weight-bearing as tolerated. Aspirin 81mg BID will be used for DVT prophylaxis. Date of Procedure: 12/05/24
--- NOTE | 2024-12-05 11:10 | W.ANESPOSTOP ---
Postoperative Evaluation Date, Time and Location Date Performed: 12/05/24 Time Performed: 11:10 Patient Location: Day Surgery Unit Vital Signs Most Recent Imported Vital Signs: Most Recent Vital Signs Temp Pulse Resp BP Pulse Ox 36.3 C L 65 22 111/58 L 98 12/05/24 10:55 12/05/24 10:55 12/05/24 10:55 12/05/24 10:55 12/05/24 10:55 Pain Score Most Recent Pain Score: Most Recent Pain Score Pain Level 0 12/05/24 10:55 Assessment Mental Status: Awake (Alert & Oriented to Patient Baseline) Airway and Respiratory Function: Patent airway with normal (patient baseline) respiratory exam Cardiovascular Function: Hemodynamically Stable Hydration Status: Adequately Hydrated Nausea & Vomiting: No Nausea or Vomiting Pain: Pain is tolerable per patient (spinal still waning. ) Peripheral Nerve Block: Regional nerve block not resolved at time of post operative discharge
[2024-12-05] MEDS: oxyCODONE 5 MG TAB PO (11:29)
[2024-12-05] MEDS: Tranexamic Acid 650 MG TAB 1300 MG PO (12:45)
--- NOTE | 2024-12-05 12:46 | PT.INIE ---
PT Notes Visit Reasons: Left knee DJD Physical Therapy Day Surgery Initial Evaluation Date: 12/05/2024 Referring Doctor: Ivonne Lerma NP/Dr. Sow PT Orders: PT CONSULT: Status post Ortho surgery Precautions: Weightbearing as tolerated left lower extremity Patient Profile/Admitting Diagnosis: Dorothea is a 49-year-old female presenting status post elective left TKA under spinal anesthesia by Dr. Sow on 12/05/2024. Postop uncomplicated. All PMHX: DJD, intermittent palpitations, status post left knee scope 2023, chondromalacia left knee, medial meniscus tear left knee, internal derangement of left knee, hypothyroidism, patellofemoral arthralgia left, iron deficiency anemia, gastritis Social History/Home Situation: Patient resides with in 1 level home 4 steps to enter with railing on the right. Patient independent with ADLs, ambulation, home management, meal prep, driving, shopping, finances. Patient is employed full-time in the school system. Equipment Owned/DME: Crutches Subjective: Patient reports she enjoys mountain biking, skiing and hockey. She is hoping the surgery will allow her to get back to these tasks Objective: [] General Observation: Young female presenting semireclined with Cryo/Cuff to left knee has been present Mental Status: Alert and oriented x 4, able to follow instructions, cooperative agreeable to participate in evaluation Pain: 3/10 left knee ROM: [] BUE: WNL RLE: WNL Left Lower Extremity: WNL except knee 0 to 98 degrees Strength: [] BUE: Grossly 5/5 RLE: Grossly 5/5 Left Lower Extremity: Hip flexion: 3 /5; hip abduction:3 - /5; hip extension: 3- /5; knee extension: 3/5; knee flexion: 2+ /5 ankle DF: 3 /5 ; ankle PF: 3 /5; Pt demonstrates strong quad set and SLR with shortened range without Lag after initiating with Quad set. Sensation: intact Bed Mobility/Transfers: Supine to sit independent Sit to stand independent Stand to sit independent Bed to chair SBA with crutches Gait: SBA with crutches 150 feet reciprocal pattern demonstrating knee flexion (reduced) during swing phase. Stairs 4 steps with rail and crutch with SBA step to pattern Balance: [] Static Sitting:Normal Dynamic Sitting: good Static Standing: Good Dynamic Standing: fair + Special Tests: [] Mobility Limitations Standardized Measure [] [facility] AM-PAC 6 clicks Basic Mobility Inpatient Short Form: [] Raw Score: 22 CMS Score: 20.91% Informed Consent/Education: Patient instructed in purpose of PT consult. Packet containing TKA exercise protocol including gastroch stretch with sheet has been given to patient. Education and training on initial set of exercises that can be done at home have been completed with patient. Assessment: Pt demonstrates left gastroch cramping with ambulation. Pt instructed in calf stretches with sheet. Patient presents with clinical signs and symptoms consistent with current/admitting diagnoses that have resulted to mobility limitations, gait instability, generalized weakness, and impairment of motor control as demonstrated by the following impairment level findings: 1. Decreased strength to left knee major muscle groups 2. Impaired standing balance 3. Limitation of joint range of motion in left knee 4. impaired standing functional activity tolerance Impairments are contributing to the following functional limitations: 1. Inability to safely ambulate without assistive device 2. Increase completion time for mobility ADL performance 3. Increased fall risk 4. difficulty performing stairs without AD Patient is assessed as a low complexity based on the following: History: 49-year-old female with impairment level findings, functional limitations, and past medical history as indicated above Examination: Demonstrable impairment in strength, balance, and mobility level with underlying impairments and functional limitations as documented above Presentation: stable Decision Making:low Goals: N/A. PT evaluation and 1-2 treatment sessions only for functional mobility training using recommended AD and for HEP instruction. Plan of Care/Treatment Plan: N/A. PT evaluation and 1-2 treatment session only for functional mobility training using recommended AD and for HEP instruction. DISCHARGE RECOMMENDATIONS: Home with home exercise program and outpatient PT as scheduled TREATMENT CODE/TIME: 56753/ [id number] Thank you for the opportunity to participate in the care of this patient. Essence Ward PT [facility]
== END 2024-12-05 13:12 | disposition home or self-care (01) ==
PROVIDERS: PCP Family Medicine; Visit Provider Student in an Organized Health Care Education/Training Program
PROC: (CPT 27447; principal; 2024-12-05 09:15)
DX: M17.12 Unilateral primary osteoarthritis, left knee (principal); G89.18 Other acute postprocedural pain
CPT/HCPCS: 27447; 64447; 64450; 81025; 97161; C1776; J0665; J0690; J1100; J2250; J2371; J2401; J2405; J2704

== ENCOUNTER 2024-12-18 15:56 | Outpatient (CLI) | payer BC, SELFPAY ==
--- NOTE | 2024-12-18 14:45 | DI.RAD_ITS ---
Exam(s) XR KNEE LT 1V XR STANDING ALIGNMENT EXAM: XR STANDING ALIGNMENT CLINICAL HISTORY: 1ST POST OP L TKA. TECHNIQUE: 2D digital imaging was performed. Standing AP views were performed from the pelvis throu gh the ankles. COMPARISON: CR XR STANDING ALIGNMENT from 11/20/2024 CR XR KNEE LT 1V from 12/18/2024 FINDINGS: BONES: No acute fracture is present. No bony destructive lesion is seen. Leg length discrepancy: No significant overall leg length discrepancy. JOINTS: Knees: A left total knee prosthesis has been placed since the previous exam. The alignment a ppears satisfactory. There are mild degenerative changes of the medial femoral tibial joint of the r ight knee. The ankle joints are unremarkable. The hip joints are unremarkable. SOFT TISSUE: Normal. IMPRESSION: Status post placement of left knee prosthesis. No significant leg length discrepancy. DATA REPOSITORY: RADIATION DOSE DELIVERED:
== END 2024-12-18 15:57 | disposition home or self-care (01) ==
LOC: DIORS 15:56
PROVIDERS: PCP Family Medicine; Visit Provider Physician Assistant
DX: Z96.652 Presence of left artificial knee joint (principal)
CPT/HCPCS: 73560; 77073

== ENCOUNTER 2025-01-18 08:34 | Outpatient (CLI) | payer BC, SELFPAY ==
--- NOTE | 2025-01-18 09:00 | DI.RAD_ITS ---
Exam(s) XR HIP PELVIS ADULT BL EXAM: XR HIP PELVIS ADULT BL CLINICAL HISTORY: LEFT HIP PAIN. TECHNIQUE: 2D digital imaging was performed. COMPARISON: No exams were available for comparison FINDINGS: Five views No evidence of pelvic nor hip fractures. There are no obvious degenerative changes in the hips. Bon e density is normal. No osseous lesions. No erosions. IMPRESSION: No significant osseous findings in the pelvis and hips. DATA REPOSITORY: RADIATION DOSE DELIVERED:
== END 2025-01-18 08:35 | disposition home or self-care (01) ==
LOC: DIORS 08:35
PROVIDERS: PCP Family Medicine; Referring Provider Family Medicine; Visit Provider Physician Assistant
DX: M25.552 Pain in left hip (principal); M25.551 Pain in right hip
CPT/HCPCS: 73521

== ENCOUNTER 2025-03-29 17:04 | Outpatient (CLI) | payer BC, SELFPAY ==
[2025-03-29 18:10] LABS: ALT 18 U/L (14-59); AST 20 U/L (15-37); Albumin 4.0 g/dL (3.4-5.0); Alkaline Phosphatase 43 U/L (46-116); Anion Gap 9.8 mmol/L (3-11); BUN 13 mg/dL (7-18); Bilirubin, Total 0.9 mg/dL (0.2-1.0); CO2 25.2 mmol/L (21.0-32.0); Calcium 8.7 mg/dL (8.5-10.1); Chloride 103 mmol/L (98-107); Estimated GFR 79.35 (mL/min/1.73m2); Glucose 78 mg/dL (74-106); Potassium 3.9 mmol/L (3.5-5.1); Sodium 138 mmol/L (136-145); TSH (W/Ref FT4) 0.65 uIU/mL (0.36-3.74); Total Protein 7.0 g/dL (6.4-8.2)
== END 2025-03-29 17:05 | disposition home or self-care (01) ==
LOC: LBO 17:04
PROVIDERS: PCP Family Medicine; Visit Provider Family Medicine
DX: I10 Essential (primary) hypertension (principal); E03.9 Hypothyroidism, unspecified
CPT/HCPCS: 36415; 80053; 84443

== ENCOUNTER 2025-04-02 10:03 | Inpatient (IN) | payer BC, SELFPAY ==
[2025-04-02] VITALS (34 sets, daily range): BP systolic 86–146; BP diastolic 50–121; PULSE 89–127; RESP 12–22; TEMP 36.5–38.4; O2SAT 96–100
--- NOTE | 2025-04-02 10:30 | RT.EKG_ITS ---
APPROVED REPORT Exam: Resting ECG Reason for Exam: tachy Patient Location: E HR:98 bpm ECG Measurements Heart Rate 98 AXIS CA 124 P 74 QRSd 78 QRS 56 QT 317 T -16 QTc 404 Conclusion Sinus rhythm, rate 98 No interval abnormalities No STEMI No priors available for comparison
[2025-04-02] MEDS: Lactated Ringers 1,000 ML 1000 ML IV ×2 (11:00→15:17)
[2025-04-02 11:10] LABS: Abs Immature Grans 0.06 10^3/uL (0.0-0.06); HCT 41.3 % (36.0-46.0); HGB 13.5 g/dL (11.2-15.7); Immature Grans % 0.4 %; MCH 28.8 pg (27.0-33.0); MCHC 32.7 % (32.0-36.0); MCV 88 fL (80-95); MPV 11.5 fL (8.0-11.0); Platelet Count 105 10^3/uL (130-400); RBC 4.69 10^6/uL (3.93-5.22); RDW 13.9 % (11.7-14.6); RDW-SD 44.9 fL; WBC 14.71 10^3/uL (4.4-10.8)
[2025-04-02 11:27] LABS: ALT 35 U/L (14-59); AST 31 U/L (15-37); Albumin 3.1 g/dL (3.4-5.0); Alkaline Phosphatase 61 U/L (46-116); Anion Gap 9.5 mmol/L (3-11); BUN 10 mg/dL (7-18); Bilirubin, Total 1.1 mg/dL (0.2-1.0); CO2 24.5 mmol/L (21.0-32.0); Calcium 8.4 mg/dL (8.5-10.1); Chloride 103 mmol/L (98-107); Estimated GFR 62.37 (mL/min/1.73m2); Glucose 109 mg/dL (74-106); Lipase 25 U/L (<78); Magnesium 1.5 mg/dL (1.8-2.4); Potassium 3.6 mmol/L (3.5-5.1); Sodium 137 mmol/L (136-145); Total Protein 6.5 g/dL (6.4-8.2); Troponin I 4 ng/L (<or=51)
[2025-04-02 11:29] LABS: Glucose Negative (Negative)
[2025-04-02 12:01] LABS: RBC 0-2 HPF (0-2)
[2025-04-02 12:02] LABS: C & S Indicated? Yes
[2025-04-02] MEDS: Omnipaque 350 MG/ML 100 ML BTL 75 ML IJ (12:03)
[2025-04-02] MEDS: Normal Saline - Diluent 50 ML VIAL IJ (12:04)
--- NOTE | 2025-04-02 12:04 | DI.CT_ITS ---
Exam(s) CT ABDOMEN PELVIS W EXAM: CT ABDOMEN PELVIS W CLINICAL HISTORY: RUQ pain, UTI. TECHNIQUE: Imaging Protocol: Axial computed tomography images with coronal and sagittal reformatted images were created and reviewed CONTRAST MATERIAL: Intravenous: Omnipaque 350 Contrast volume:75 ml Oral: no COMPARISON: CT ABD PELVIS WITH CONTRAST from 01/08/2010 US US PELVIS TRANSVAGINAL from 03/06/2025 FINDINGS: ABDOMEN and PELVIS: Lung Bases: No acute findings. Liver: Normal density. No suspicious mass. Gallbladder and biliary tract: No radiodense calculus. No wall thickening or pericholecystic fluid. No biliary dilation. Pancreas: Normal density. No abnormal calcifications or inflammatory process. No evidence of mass. Spleen: Normal. Kidneys: The right kidney is enlarged and shows multiple areas of decreased perfusion. There is minimal stranding in the perinephric fat. Findings are highly suspicious for pyelonephritis. The left kidney is unremarkable. No radiodense stones. No obstructive uropathy. No suspicious masses seen. Adrenal glands: No masses seen. Vasculature: Abdominal aorta non-dilated. Soft tissues: Unremarkable. Bladder: No gross wall thickening. No calculi.No focal mass. Bowel: No obstruction. No bowel wall thickening. Appendix normal is not seen. Status post appendectomy. Peritoneal cavity: Trace fluid in the cul-de-sac.. No focal collection. No mesenteric inflammatory response. No free air. Bones: Unremarkable for age. Reproductive organs: 4 centimeter right ovarian cyst. 3 centimeter left ovarian cyst. IUD in place in the uterus. Lymph nodes: No pathologically enlarged lymph nodes. IMPRESSION:: Findings consistent with right pyelonephritis. No hydronephrosis or calculi. RADIATION DOSE DELIVERED: 558.45mGy.cm Total DLP DATA REPOSITORY: All CT scans at this facility are submitted to the National Radiology Data Registry (NRDR) Dose Index Registry (DIR) with the [employer] (ACR). RADIATION OPTIMIZATION: All CT scans at this facility use at least one of these dose optimization techniques: automated exposure control; mA and/or kV adjustment per patient size (includes targeted exams where dose is matched to clinical indication); or iterative reconstruction.
--- NOTE | 2025-04-02 12:29 | ED.GENADUL_ITS ---
Discharge Plan Disposition Patient Disposition: Admit to [facility] Condition: Stable Discharge Details Clinical Impression: Pyelonephritis, Hypomagnesemia Primary Care Provider: Kaylee Bangura ED Provider: Ann Maya Home Meds and New Rx's Prescriptions: New cephalexin 500 mg capsule 500 mg PO QID 9 Days Qty: 36 0RF Rx Instructions: Start 04/03/2025 No Action Mirena 21 mcg/24 hours (8 yrs) 52 mg intrauterine device 1 device intrauterine ONCE Qty: 1 0RF Rx Instructions: as a single dose levothyroxine 150 mcg tablet 150 mcg PO DAILY Qty: 90 3RF liothyronine 5 mcg tablet 5 mcg PO DAILY Qty: 90 3RF tirzepatide (weight loss) 7.5 mg/0.5 mL pen injector 7.5 mg subcut QWEEK Qty: 8 4RF celecoxib 200 mg capsule See Rx Instructions .ROUTE .COMPLEX Qty: 60 0RF Dose Instruction: TAKE 1 CAPSULE(200 MG) BY MOUTH TWICE DAILY NEEDED FOR PAIN OR PAIN AND INFLAMMATION Rx Instructions: TAKE 1 CAPSULE(200 MG) BY MOUTH TWICE DAILY NEEDED FOR PAIN OR PAIN AND INFLAMMATION acetaminophen 500 mg tablet 1,000 mg PO Q8H PRN Qty: 90 0RF Rx Instructions: Take two tablets up to every 8 hours as needed for pain HPI General Mode of arrival: ambulatory . Date/Time Provider Initiated Documentation: 04/02/25 10:08 . Limitations to Documentation: no limitations . Information obtained by: patient, family and old records reviewed . HPI Narrative: This is a 49-year-old female patient with a past medical history significant for hypothyroidism, iron deficiency anemia, and gastritis who is presenting for evaluation of bodyaches, rigors and shaking, and right upper quadrant/flank pain. The patient was in her normal state of health until Wednesday, when she developed the symptoms. She states that she feels very unwell, has been shaking uncontrollably, had a low-grade fever of 99.4 at home. She reports that she has had some discomfort in her right upper quadrant and her right flank, denies dysuria or hematuria. She states that she has not undergone cholecystectomy, has had her appendix out. She took Tylenol and Celebrex about 2 hours prior to arrival with some improvement, states that she has been attempting to maintain her hydration and has not had nausea, vomiting, or diarrhea. Related Data Home Medications ?Medication ?Instructions ?Recorded ?Confirmed levonorgestrel (Mirena) 1 device intrauterine ONCE # 1 ea 05/27/23 04/02/25 levothyroxine 150 mcg tablet 150 mcg PO DAILY #90 tab- caps 11/23/24 04/02/25 acetaminophen 500 mg tablet 1,000 mg (2 x 500 mg) PO Q 8H PRN 12/05/24 04/02/25 pain #90 tabs liothyronine 5 mcg tablet 5 mcg PO DAILY #90 tab-caps 01/10/25 04/02/25 tirzepatide (weight loss) 7.5 7.5 mg (0.5 mL) subcut Q WEEK #8 mL 03/19/25 04/02/25 mg/0.5 mL subcutaneous pen injector celecoxib 200 mg capsule See Rx Instructions .Route 0 04/01/25 04/02/25 .COMPLEX #60 caps cephalexin 500 mg capsule 500 mg PO QID 9 days #36 cap s 04/02/25 Previous Rx's ?Medication ?Instructions ?Recorded levonorgestrel (Mirena) 1 device intrauterine ONCE # 1 ea 05/27/23 levothyroxine 150 mcg tablet 150 mcg PO DAILY #90 tab- caps 11/23/24 acetaminophen 500 mg tablet 1,000 mg (2 x 500 mg) PO Q 8H PRN 12/05/24 pain #90 tabs liothyronine 5 mcg tablet 5 mcg PO DAILY #90 tab-caps 01/10/25 tirzepatide (weight loss) 7.5 7.5 mg (0.5 mL) subcut Q WEEK #8 mL 03/19/25 mg/0.5 mL subcutaneous pen injector celecoxib 200 mg capsule See Rx Instructions .Route 0 04/01/25 .COMPLEX #60 caps cephalexin 500 mg capsule 500 mg PO QID 9 days #36 cap s 04/02/25 Allergies Allergy/AdvReac Type Severity Reaction Status Date / Time clindamycin Allergy Intermediate Rash Verified 04/02/25 10:17 Penicillins Allergy Mild rash Verified 04/02/25 10:17 morphine AdvReac Severe HALLUCINATI Verified 04/02/25 10:17 ONS promethazine AdvReac Severe TONIC/CLONIC Verified 04/02/25 10:17 REACTION General Stated Complaint: GenMedical CORI: 2 Exam Narrative Exam Narrative: Gen: Awake and alert, appears uncomfortable HEENT: Non-icteric sclera Neck: Supple Lungs: No apparent respiratory distress, normal respiratory effort. Lung sounds clear CV: Appears well perfused, heart with tachycardic rate but regular rhythm, strong distal pulses Abdomen: Non-distended, soft, minimal tenderness to palpation in the right upper quadrant without positive Spence sign, no rigidity, rebound, or guarding rebound, or guarding MSK: Moves 4 extremities without apparent limitation in ROM Skin: Visualized skin without rashes, cyanosis. Neuro: Normal Gait, no obvious focal deficits or facial asymmetry. Speaks in full, clear sentences. Psych: Appropriate for situation. Course Vital Signs Vital signs: Vital Signs Temperature 37.1 C 04/02/25 10:13 Pulse 120 H 04/02/25 10:13 Respiratory Rate 18 04/02/25 10:13 Blood Pressure 86/61 L 04/02/25 10:13 Pulse Oximetry 96 04/02/25 10:13 Temperature 37.1 C 04/02/25 10:16 Pulse 97 H 04/02/25 10:55 Pulse 98 H 04/02/25 11:00 Respiratory Rate 18 04/02/25 11:00 Blood Pressure 106/58 L 04/02/25 10:55 Blood Pressure Mean 71 04/02/25 10:55 Pulse Oximetry 98 04/02/25 10:55 Lab/Test Results Lab/Test Results: 04/02/25 11:10 Urine - Reflex from Ua Urine Culture - Pending 04/02/25 11:25 Blood Blood Culture - Pending 04/02/25 10:55 Blood Blood Culture - Pending Laboratory Tests Range/Units 04/02/25 04/02/25 04/02/25 10:55 11:10 11:33 WBC (4.4-10.8) 10^3/uL 14.71 H RBC (3.93-5.22) 10^6/uL 4.69 Hgb (11.2-15.7) g/dL 13.5 Hct (36.0-46.0) % 41.3 MCV (80-95) fL 88 MCH (27.0-33.0) pg 28.8 MCHC (32.0-36.0) % 32.7 RDW (11.7-14.6) % 13.9 Plt Count (130-400) 10^3/uL 105 L MPV (8.0-11.0) fL 11.5 H Immature Gran % % 0.4 Neutrophils % % 91.8 Lymphocytes % % 3.0 Monocytes % % 4.5 Eosinophils % % 0.1 Basophils % % 0.2 Nucleated RBC % (0.0-0.3) % 0.0 Absolute Neutrophils (1.2-6.7) 10^3/uL 13.50 H Absolute Lymphocytes (1.2-3.4) 10^3/uL 0.44 L Absolute Monocytes (0.1-0.8) 10^3/uL 0.66 Absolute Eosinophils (0.0-0.7) 10^3/uL 0.01 Absolute Basophils (0.0-0.2) 10^3/uL 0.03 VBG Lactate (<or=2.0) mmol/L 1.2 Sodium (136-145) mmol/L 137 Potassium (3.5-5.1) mmol/L 3.6 Chloride (98-107) mmol/L 103 Carbon Dioxide (21.0-32.0) mmol/L 24.5 Anion Gap (3-11) mmol/L 9.5 BUN (7-18) mg/dL 10 Creatinine (0.55-1.02) mg/dL 1.1 H Est GFR (CKD-EPI 2020) (mL/min/1.73m2) 62.37 Glucose (74-106) mg/dL 109 H Calcium (8.5-10.1) mg/dL 8.4 L Magnesium (1.8-2.4) mg/dL 1.5 L Total Bilirubin (0.2-1.0) mg/dL 1.1 H AST (15-37) U/L 31 ALT (14-59) U/L 35 Alkaline Phosphatase (46-116) U/L 61 Troponin I (<or=51) ng/L 4 Cancelled Total Protein (6.4-8.2) g/dL 6.5 Albumin (3.4-5.0) g/dL 3.1 L Lipase (<78) U/L 25 Urine Color (Yellow) Qing Urine Clarity (Clear) Sl Cloudy Urine pH (5-8) 6.0 Ur Specific [place] (1.005-1.025) 1.015 Urine Protein (Neg-Trace) mg/dL 100 H Urine Ketones (Negative) mg/dL 80 H Urine Blood (Negative) Moderate H Urine Nitrite (Negative) Positive H Urine Bilirubin (Negative) Small H Urine Urobilinogen (Up to 0.2) mg/dL 1.0 H Ur Leukocyte Esterase (Negative) Small H Urine RBC (0-2) HPF 0-2 Urine WBC (0-5) HPF 10-20 H Ur Epithelial Cells (Negative) HPF Few Urine Crystals (Negative) HPF Negative Urine Bacteria (Negative) HPF Many Urine Casts (Negative) LPF 0-2 Coarse Granular Urine Mucus (Negative) Trace Ur Culture Indicated? Yes Urine Glucose (Negative) mg/dL Negative Medical Decision Making This is a 49-year-old female patient presenting for evaluation of rigors, body aches, right upper quadrant pain and right flank pain. Differential includes but is not limited to sepsis, bacteremia, certainly considered urinary tract infection/pyelonephritis, considered viral upper respiratory infection, tickborne illness such as anaplasmosis.. Considered intra-abdominal pathology including cholecystitis, hepatitis, pancreatitis. Considered metabolic and electrolyte derangement and dehydration. We will obtain laboratory studies to include CBC, CMP, magnesium, lipase, troponin, and urinalysis. Urine test was negative. We will send off blood cultures and tick panel. At this time the patient is not desiring of any Tylenol or ibuprofen but I will provide her with a liter of IV fluid for rehydration. -I reviewed the patient's laboratory studies, and noted a leukocytosis to 14 without evidence of anemia. She does have some thrombocytopenia to 105. Lactate is not elevated at 1.2. Chemistry panel is without electrolyte derangement or evidence of severe kidney dysfunction, other than a low magnesium at 1.5 which was repleted. She has no elevation in her liver enzymes. Lipase is negative, as is her troponin. Urinalysis is frankly positive with positive nitrates, leukocyte esterase, pyuria and many bacteria. CT scan shows evidence of right-sided pyelonephritis, and the patient received ceftriaxone for antibiosis. Her COVID and influenza testing was negative and I will hold on doxycycline for tickborne illness as she has thrombocytopenia in isolation with no known tick bites nor evidence of liver enzyme elevation. Initially we trialed the patient for potential outpatient management, she tolerated oral intake but did have an episode of rigors with worsening tachycardia and I feel that this patient would benefit from overnight observation while awaiting results of her blood cultures. I did prior provide her with Tylenol and Toradol as she spiked a fever to 38.4 here in the emergency department. I discussed the patient's case with the hospitalist who is graciously accepted this patient for admission to their service. She was transferred from our department without further incident. Ann Maya MD [facility] All Active Problems (Updated 04/02/25 @ 14:31 by Ann Maya MD) Hypomagnesemia (Acute) Pyelonephritis (Acute) Pelvic pain (Acute) Bilateral hip pain (Acute) Wound dehiscence, surgical (Acute) History of total left knee replacement (Acute 12/05/24) Intermittent palpitations (Acute) DJD (degenerative joint disease) of knee (Acute) Annual physical exam (Acute) Hypothyroidism (Chronic 03/16/12) [place] [place] HASHIM[place]OS, THYROID NODULE, GOITER Status post dilation and curettage (Acute) Encounter for screening colonoscopy (Acute) Family history of skin cancer (Acute) Patellofemoral arthralgia of left knee (Acute) Fe deficiency anemia (Acute) RUQ abdominal pain (Acute) Sessile serrated polyp of colon (Acute ~01/27/23) Gastritis (Acute ~01/27/23) DUB (dysfunctional uterine bleeding) (Acute) Thickened endometrium (Acute) Shoulder pain (Acute) Medical History Right foot pain Sacral back pain Mild intermittent reactive airway disease (08/20/15) Pt. denies Iron deficiency (03/16/13) Goiter (08/23/04) H/O POST GOITER; h/o hypothyroid and abnl antimicrosomal ab 2005 Gastroesophageal reflux disease (03/15/12) Surgical History H/O arthroscopy of left knee (07/11/24) History of colonoscopy with polypectomy (~01/27/23) History of esophagogastroduodenoscopy (EGD) (~01/27/23) Hx of appendectomy Endometrial Biopsy (05/18/14) [facility] Family History Father Diabetes Essential hypertension Skin cancer Social History Smoking/Tobacco Use Status: Never Second Hand Exposure: No Smoking risk assessment performed?: Yes Alcohol Intake: current Alcohol Intake frequency: a few times a month Drug use: Never Substance use type: does not use Caregiver/Support person: No Household members: spouse Housing: house Communication Needs: None Do you need help understanding health information?: Never Pets and animals: Yes Pets and animals: dog(s) Sexually active: Yes Do you think of yourself as: straight/heterosexual Current gender identity: female What is your relationship status?: How often do you talk on the phone with friends or family?: once per week How often do you get together with friends or relatives?: once per week How often do you attend religious or denominational services?: decline to answer Do you belong to any clubs or organized social groups?: yes Panel score (0-1 are the most socially isolated patients): 2 What type of physical activity do you participate in: weight lifting Duration: 15-30 minutes/day Frequency: 3-4 times per week Jeanette/Mosque: No preference Special jeanette needs: No Seatbelt use: always Helmet use: Yes Helmet use: always Drive intox or ride w/intox pick up truck driver: No Do you feel safe at home: Yes Do you feel safe in your relationship?: Yes History History 2 Para 2 Hx # Term Pregnancies Multiple births Hx # Pregnancies Ectopic pregnancies AB induced Hx Number of Living Children AB spontaneous
[2025-04-02 12:34] LABS: COVID-19 PCR Negative (Negative); RSV PCR Negative (Negative)
[2025-04-02] MEDS: cefTRIAXone 1 GM/50 ML BAG IVPB (12:52)
[2025-04-02] MEDS: MAGNESIUM SULFATE 2 GM/50 ML BAG IV_INF (13:19)
[2025-04-02] MEDS: Acetaminophen 500 MG TAB 1000 MG PO ×2 (15:01→23:48)
[2025-04-02] MEDS: Ketorolac 15 MG/ML VIAL IVP ×2 (15:01→21:55)
--- NOTE | 2025-04-02 17:40 | HPE_ITS ---
Date of service: 04/02/25 Time of Service: 16:30 Assessment and Plan Assessment and plan (1) Pyelonephritis: Status: Acute Assessment and plan: Acute right-sided pyelonephritis with systemic symptoms 2 litres LR in ED will give 500 ml bolus and then 125 ml/h NS * Admit for IV antibiotics and close monitoring * Continue ceftriaxone; adjust per culture and sensitivity results * Blood and urine cultures pending * Antipyretics PRN for fever (acetaminophen preferred) * Monitor for signs of sepsis (trend vitals, repeat labs in am) (2) Hypomagnesemia: Status: Acute Assessment and plan: Repleted in ED; repeat magnesium in AM Continue supplementation PRN (3) Hypotension: Status: Acute Assessment and plan: Hypotension, improved with fluids * Likely secondary to infection/dehydration * Continue IV fluids at maintenance; reassess BP and volume status (4) Thrombocytopenia: Status: Chronic Assessment and plan: * Possibly infection-related; baseline unknown * Monitor platelet count daily * Hold anticoagulation if platelets drop <50K or bleeding develops (5) Hypothyroidism: Status: Chronic Assessment and plan: Continue home levothyroxine and liothyronineTSH 0.65 03/29/25 (6) Fe deficiency anemia: Status: Acute Assessment and plan: Hgb currently normal; monitor during admission History of Present Illness Narrative: 49-year-old female with PMH of hypothyroidism, iron deficiency anemia, and gastritis presents with 3 days of body aches, rigors, shaking chills, and right upper quadrant/flank pain. No dysuria, hematuria, nausea, vomiting, or diarrhea. No history of cholecystectomy; prior appendectomy. Took acetaminophen and celecoxib prior to arrival with partial relief. ED course: Hypotensive on arrival (BP 86/61), tachycardic to 120 bpm, afebrile initially. Received IV fluids with improvement in BP and HR. Labs notable for leukocytosis (14.7), thrombocytopenia (105), creatinine 1.1, magnesium 1.5, UA strongly suggestive of infection. CT abdomen/pelvis confirmed right-sided pyelonephritis. Lactate normal. Given IV ceftriaxone and magnesium replacement. COVID/flu negative. Admitted for IV antibiotics and monitoring.. Review of Systems Narrative: * General: Positive for fever, chills/rigors, malaise, and body aches. * HEENT: Denies headache, sore throat, nasal congestion, or vision changes. * Cardiovascular: Denies chest pain, palpitations, or syncope. * Respiratory: Denies cough, shortness of breath, or wheezing. * Gastrointestinal: Positive for right upper quadrant and flank pain. Denies nausea, vomiting, diarrhea, constipation, hematemesis, or melena. * Genitourinary: Denies dysuria, frequency, urgency, or hematuria. * Musculoskeletal: Positive for generalized myalgias; denies focal joint swelling or weakness. * Neurologic: Denies dizziness, focal weakness, numbness, or speech changes. * Skin: Denies rash, lesions, or jaundice. * Psychiatric: No anxiety, depression, or confusion reported. PFSH All Active Problems (Updated 04/02/25 @ 17:46 by Alma Delia Quinonez NP) Thrombocytopenia (Chronic) Hypotension (Acute) Hypomagnesemia (Acute) Pyelonephritis (Acute) Pelvic pain (Acute) Bilateral hip pain (Acute) Wound dehiscence, surgical (Acute) History of total left knee replacement (Acute 12/05/24) Intermittent palpitations (Acute) DJD (degenerative joint disease) of knee (Acute) Annual physical exam (Acute) Hypothyroidism (Chronic 03/16/12) SURAJ; [place] [place] HASHIMOTOS, THYROID NODULE, GOITER Status post dilation and curettage (Acute) Encounter for screening colonoscopy (Acute) Family history of skin cancer (Acute) Patellofemoral arthralgia of left knee (Acute) Fe deficiency anemia (Acute) RUQ abdominal pain (Acute) Sessile serrated polyp of colon (Acute ~01/27/23) Gastritis (Acute ~01/27/23) DUB (dysfunctional uterine bleeding) (Acute) Thickened endometrium (Acute) Shoulder pain (Acute) Medical History Right foot pain Sacral back pain Mild intermittent reactive airway disease (08/20/15) Pt. denies Iron deficiency (03/16/13) Goiter (08/23/04) H/O POST GOITER; h/o hypothyroid and abnl antimicrosomal ab 2005 Gastroesophageal reflux disease (03/15/12) Surgical History H/O arthroscopy of left knee (07/11/24) History of colonoscopy with polypectomy (~01/27/23) History of esophagogastroduodenoscopy (EGD) (~01/27/23) Hx of appendectomy Endometrial Biopsy (05/18/14) WWC Family History Father Diabetes Essential hypertension Skin cancer Social History Smoking/Tobacco Use Status: Never Second Hand Exposure: No Smoking risk assessment performed?: Yes Alcohol Intake: current Alcohol Intake frequency: a few times a month Drug use: Never Substance use type: does not use Caregiver/Support person: No Household members: spouse Housing: house Communication Needs: None Do you need help understanding health information?: Never Pets and animals: Yes Pets and animals: dog(s) Sexually active: Yes Do you think of yourself as: straight/heterosexual Current gender identity: female What is your relationship status?: How often do you talk on the phone with friends or family?: once per week How often do you get together with friends or relatives?: once per week How often do you attend cheondoism or congregation services?: decline to answer Do you belong to any clubs or organized social groups?: yes Panel score (0-1 are the most socially isolated patients): 2 What type of physical activity do you participate in: weight lifting Duration: 15-30 minutes/day Frequency: 3-4 times per week Jeanette/Jehovah'S Witness: No preference Special jeanette needs: No Seatbelt use: always Helmet use: Yes Helmet use: always Drive intox or ride w/intox sulky driver: No Do you feel safe at home: Yes Do you feel safe in your relationship?: Yes History History 2 2 Para 2 Hx # Term Pregnancies Multiple births Hx # Pregnancies Ectopic pregnancies AB induced Hx Number of Living Children AB spontaneous Meds Allergies and Home Medications Allergies Allergy/AdvReac Type Severity Reaction Status Date / Time clindamycin Allergy Intermediate Rash Verified 04/02/25 10:17 Penicillins Allergy Mild rash Verified 04/02/25 10:17 morphine AdvReac Severe HALLUCINATI Verified 04/02/25 10:17 ONS promethazine AdvReac Severe TONIC/CLONIC Verified 04/02/25 10:17 REACTION Home Medications ?Medication ?Instructions ?Recorded ?Confirmed ?Type levonorgestrel (Mirena) 1 device intrauterine ONCE # 1 ea 05/27/23 04/02/25 Rx levothyroxine 150 mcg tablet 150 mcg PO DAILY #90 tab- caps 11/23/24 04/02/25 Rx acetaminophen 500 mg tablet 1,000 mg (2 x 500 mg) PO Q 8H PRN 12/05/24 04/02/25 Rx pain #90 tabs liothyronine 5 mcg tablet 5 mcg PO DAILY #90 tab-caps 01/10/25 04/02/25 Rx tirzepatide (weight loss) 7.5 7.5 mg (0.5 mL) subcut Q WEEK #8 mL 03/19/25 04/02/25 Rx mg/0.5 mL subcutaneous pen injector celecoxib 200 mg capsule See Rx Instructions .Route 0 04/01/25 04/02/25 Rx .COMPLEX #60 caps cephalexin 500 mg capsule 500 mg PO QID 9 days #36 cap s 04/02/25 Rx Exam Narrative Exam Narrative: General: Alert, uncomfortable-appearing HEENT: Sclera anicteric CV: Regular tachycardia, strong distal pulses Lungs: Clear to auscultation Abdomen: Soft, nondistended, minimal RUQ tenderness, negative Spence?s, no rebound or guarding Neuro: No focal deficits, normal gait Skin: No rash, cyanosis Psych: Appropriate affect Results Labs 04/02/25 10:55 04/02/25 10:55 Labs: Laboratory Results - last 24 hr 04/02/25 04/02/25 04/02/25 10:55 11:10 11:33 WBC 14.71 H RBC 4.69 Hgb 13.5 Hct 41.3 MCV 88 MCH 28.8 MCHC 32.7 RDW 13.9 Plt Count 105 L MPV 11.5 H Immature Gran % 0.4 Neutrophils % 91.8 Lymphocytes % 3.0 Monocytes % 4.5 Eosinophils % 0.1 Basophils % 0.2 Nucleated RBC % 0.0 Absolute Neutrophils 13.50 H Absolute Lymphocytes 0.44 L Absolute Monocytes 0.66 Absolute Eosinophils 0.01 Absolute Basophils 0.03 VBG Lactate 1.2 Sodium 137 Potassium 3.6 Chloride 103 Carbon Dioxide 24.5 Anion Gap 9.5 BUN 10 Creatinine 1.1 H Est GFR (CKD-EPI 2020) 62.37 Glucose 109 H Calcium 8.4 L Magnesium 1.5 L Total Bilirubin 1.1 H AST 31 ALT 35 Alkaline Phosphatase 61 Troponin I 4 Cancelled Total Protein 6.5 Albumin 3.1 L Lipase 25 Urine Color Qing Urine Clarity Sl Cloudy Urine pH 6.0 Ur Specific [place] 1.015 Urine Protein 100 H Urine Ketones 80 H Urine Blood Moderate H Urine Nitrite Positive H Urine Bilirubin Small H Urine Urobilinogen 1.0 H Ur Leukocyte Esterase Small H Urine RBC 0-2 Urine WBC 10-20 H Ur Epithelial Cells Few Urine Crystals Negative Urine Bacteria Many Urine Casts 0-2 Coarse Granular Urine Mucus Trace Ur Culture Indicated? Yes Urine Glucose Negative COVID-19 Source SARS-CoV-2 (PCR) Influenza Type A (PCR) Influenza Type B (PCR) RSV (PCR) 04/02/25 04/02/25 11:46 13:33 WBC RBC Hgb Hct MCV MCH MCHC RDW Plt Count MPV Immature Gran % Neutrophils % Lymphocytes % Monocytes % Eosinophils % Basophils % Nucleated RBC % Absolute Neutrophils Absolute Lymphocytes Absolute Monocytes Absolute Eosinophils Absolute Basophils VBG Lactate Sodium Potassium Chloride Carbon Dioxide Anion Gap BUN Creatinine Est GFR (CKD-EPI 2020) Glucose Calcium Magnesium Total Bilirubin AST ALT Alkaline Phosphatase Troponin I Cancelled Total Protein Albumin Lipase Urine Color Urine Clarity Urine pH Ur Specific Dillon Urine Protein Urine Ketones Urine Blood Urine Nitrite Urine Bilirubin Urine Urobilinogen Ur Leukocyte Esterase Urine RBC Urine WBC Ur Epithelial Cells Urine Crystals Urine Bacteria Urine Casts Urine Mucus Ur Culture Indicated? Urine Glucose COVID-19 Source Nasopharynx SARS-CoV-2 (PCR) Negative Influenza Type A (PCR) Negative Influenza Type B (PCR) Negative RSV (PCR) Negative Last Vital Signs Temp 38.4 C H 04/02/25 16:54 Pulse 115 H 04/02/25 16:54 Resp 18 04/02/25 15:11 BP 104/72 04/02/25 16:54 Pulse Ox 96 04/02/25 16:54 PAWSS Have you Been Recently Intoxicated or Drunk Within the Last 30 days?: No Have you Ever Experienced Previous Episodes of Alcohol Withdrawal?: No Have you ever Experienced Withdrawal Seizures?: No Have you ever Experienced Delirium Tremens(DT)s?: No Have you ever undergone Alcohol Rehabilitation Treatment (i.e, inpt ot outpatient treatment programs)?: No Have you ever Experienced Blackouts?: No Have you ever Combined Alcohol with other Downers within the last 90 days?: No Have you ever Combined Alcohol with any other Substance of Abuse during the last 90 days?: No Positive Blood Alcohol level on Presentation? [PCS.BAL]: No Evidence of Increased Autonomic Activity (i.e. HR>120, tremor, sweating, agitation, nausea)?: No Result: 0 Time Spent Time spent with Patient: 40-54 minutes Time was spent: preparing to see the patient(eg.review tests), obtaining and/or reviewing separately otained hiistory, ordering medications,tests, procedures, referring, communicating with other health emergency care attendant, indepentently interpreting results, counseling the patient and care coordination
[2025-04-02] MEDS: ACETAMINOPHEN 1,000 MG/100 ML BAG 400 MG IVPB (17:49)
[2025-04-02] MEDS: Lactated Ringers 500 ML IV (17:49)
--- NOTE | 2025-04-02 18:31 | W.PC.ACHO ---
Registration Status: ADM IN Primary Language: Preferred Language: Yi ED Information & Data Chief Complaint GenMedical 04/02/25 15:05 Chief Complaint GenMedical 04/02/25 12:29 Triage Note Patient complaining of 04/02/25 10:13 uncontrollable shaking, cramps, body aches since wednesday. Also having right flank pain into upper abd Medical / Surgical History (Last Reviewed 02/13/25 @ 06:39 by Manolo Sow MD) Gastroesophageal reflux disease (03/15/12) Goiter (08/23/04) Iron deficiency (03/16/13) Mild intermittent reactive airway disease (08/20/15) Right foot pain Sacral back pain (Last Reviewed 02/13/25 @ 06:39 by Manolo Sow MD) Endometrial Biopsy (05/18/14) H/O arthroscopy of left knee (07/11/24) History of colonoscopy with polypectomy (~01/27/23) History of esophagogastroduodenoscopy (EGD) (~01/27/23) Hx of appendectomy Most Recent Vital Signs Temperature 38.4 C H 04/02/25 16:54 Temperature Source Oral 04/02/25 15:11 Pulse 115 H 04/02/25 16:54 Pulse Rhythm Regular 04/02/25 16:54 Pulse 120 H 04/02/25 15:01 Respiratory Rate 18 04/02/25 15:11 Respiratory Effort Normal, Non-Labored 04/02/25 16:54 Respiratory Depth Normal 04/02/25 16:54 Respiratory Pattern Normal 04/02/25 16:54 Blood Pressure 104/72 04/02/25 16:54 Blood Pressure Mean 106 04/02/25 15:11 Pulse Oximetry 96 04/02/25 16:54 Oxygen Delivery Method Room Air 04/02/25 16:54 Oxygen Flow Rate 0 04/02/25 16:54 Pain Level 0 04/02/25 18:15 Allergies clindamycin Allergy (Intermediate, Verified 04/02/25 10:17) Rash Penicillins Allergy (Mild, Verified 04/02/25 10:17) rash morphine Adverse Reaction (Severe, Verified 04/02/25 10:17) HALLUCINATIONS promethazine Adverse Reaction (Severe, Verified 04/02/25 10:17) TONIC/CLONIC REACTION Active Medications Generic Name Dose Route Start Last Admin Trade Name Freq PRN Reason Stop Dose Admin Ringer's Solution 500 mls @ 500 mls/hr 04/02/25 17:34 04/02/25 17:49 IV 04/02/25 18:33 500 mls/hr BOLUS ONE Administration Iohexol 75 ml 04/02/25 12:15 04/02/25 12:03 Omnipaque 350 Mg/Ml 100 Ml Btl IJ 05/02/25 23:59 75 ml DIRECTED LINDA Administration Sodium Chloride 50 ml 04/02/25 12:15 04/02/25 12:04 Normal Saline - Diluent 50 Ml Vial IJ 50 ml .FOR DI USE LINDA Administration IV IV Catheter Type [Left Peripheral IV Antecubital] IV Catheter Type [Left Wrist] Saline Lock IV Catheter Gauge [Left 20 Antecubital] IV Catheter Gauge [Left Wrist] 18 Diet Orders Category Date Time Status Regular/Normal [DIET] Nutrition 04/02/25 Dinner Active Diagnostics 04/02/25 04/02/25 04/02/25 Range/Units 13:33 11:46 11:33 WBC (4.4-10.8) 10^3/uL RBC (3.93-5.22) 10^6/uL Hgb (11.2-15.7) g/dL Hct (36.0-46.0) % MCV (80-95) fL MCH (27.0-33.0) pg MCHC (32.0-36.0) % RDW (11.7-14.6) % Plt Count (130-400) 10^3/uL MPV (8.0-11.0) fL Immature Gran % % Neutrophils % % Lymphocytes % % Monocytes % % Eosinophils % % Basophils % % Nucleated RBC % (0.0-0.3) % Absolute Neutrophils (1.2-6.7) 10^3/uL Absolute Lymphocytes (1.2-3.4) 10^3/uL Absolute Monocytes (0.1-0.8) 10^3/uL Absolute Eosinophils (0.0-0.7) 10^3/uL Absolute Basophils (0.0-0.2) 10^3/uL VBG Lactate (<or=2.0) mmol/L Sodium (136-145) mmol/L Potassium (3.5-5.1) mmol/L Chloride (98-107) mmol/L Carbon Dioxide (21.0-32.0) mmol/L Anion Gap (3-11) mmol/L BUN (7-18) mg/dL Creatinine (0.55-1.02) mg/dL Est GFR (CKD-EPI 2020) (mL/min/1.73m2) Glucose (74-106) mg/dL Calcium (8.5-10.1) mg/dL Magnesium (1.8-2.4) mg/dL Total Bilirubin (0.2-1.0) mg/dL AST (15-37) U/L ALT (14-59) U/L Alkaline Phosphatase (46-116) U/L Troponin I Cancelled Cancelled (<or=51) ng/L Total Protein (6.4-8.2) g/dL Albumin (3.4-5.0) g/dL Lipase (<78) U/L Urine Color (Yellow) Urine Clarity (Clear) Urine pH (5-8) Ur Specific [place] (1.005-1.025) Urine Protein (Neg-Trace) mg/dL Urine Ketones (Negative) mg/dL Urine Blood (Negative) Urine Nitrite (Negative) Urine Bilirubin (Negative) Urine Urobilinogen (Up to 0.2) mg/dL Ur Leukocyte Esterase (Negative) Urine RBC (0-2) HPF Urine WBC (0-5) HPF Ur Epithelial Cells (Negative) HPF Urine Crystals (Negative) HPF Urine Bacteria (Negative) HPF Urine Casts (Negative) LPF Urine Mucus (Negative) Ur Culture Indicated? Urine Glucose (Negative) mg/dL B. divergens/MO-1 PCR Babesia duncani (PCR) Babesia microti DNA PCR Lyme Disease Antibody COVID-19 Source Nasopharynx SARS-CoV-2 (PCR) Negative (Negative) E.chaffeensis DNA (PCR) E.ewingii/canis DNA PCR E.muris eauclairensis (PCR) Influenza Type A (PCR) Negative (Negative) Influenza Type B (PCR) Negative (Negative) RSV (PCR) Negative (Negative) A. phagocytophilum (PCR) Blood B. miyamotoi (PCR) 04/02/25 04/02/25 Range/Units 11:10 10:55 WBC 14.71 H (4.4-10.8) 10^3/uL RBC 4.69 (3.93-5.22) 10^6/uL Hgb 13.5 (11.2-15.7) g/dL Hct 41.3 (36.0-46.0) % MCV 88 (80-95) fL MCH 28.8 (27.0-33.0) pg MCHC 32.7 (32.0-36.0) % RDW 13.9 (11.7-14.6) % Plt Count 105 L (130-400) 10^3/uL MPV 11.5 H (8.0-11.0) fL Immature Gran % 0.4 % Neutrophils % 91.8 % Lymphocytes % 3.0 % Monocytes % 4.5 % Eosinophils % 0.1 % Basophils % 0.2 % Nucleated RBC % 0.0 (0.0-0.3) % Absolute Neutrophils 13.50 H (1.2-6.7) 10^3/uL Absolute Lymphocytes 0.44 L (1.2-3.4) 10^3/uL Absolute Monocytes 0.66 (0.1-0.8) 10^3/uL Absolute Eosinophils 0.01 (0.0-0.7) 10^3/uL Absolute Basophils 0.03 (0.0-0.2) 10^3/uL VBG Lactate 1.2 (<or=2.0) mmol/L Sodium 137 (136-145) mmol/L Potassium 3.6 (3.5-5.1) mmol/L Chloride 103 (98-107) mmol/L Carbon Dioxide 24.5 (21.0-32.0) mmol/L Anion Gap 9.5 (3-11) mmol/L BUN 10 (7-18) mg/dL Creatinine 1.1 H (0.55-1.02) mg/dL Est GFR (CKD-EPI 2020) 62.37 (mL/min/1.73m2) Glucose 109 H (74-106) mg/dL Calcium 8.4 L (8.5-10.1) mg/dL Magnesium 1.5 L (1.8-2.4) mg/dL Total Bilirubin 1.1 H (0.2-1.0) mg/dL AST 31 (15-37) U/L ALT 35 (14-59) U/L Alkaline Phosphatase 61 (46-116) U/L Troponin I 4 (<or=51) ng/L Total Protein 6.5 (6.4-8.2) g/dL Albumin 3.1 L (3.4-5.0) g/dL Lipase 25 (<78) U/L Urine Color Qing (Yellow) Urine Clarity Sl Cloudy (Clear) Urine pH 6.0 (5-8) Ur Specific [place] 1.015 (1.005-1.025) Urine Protein 100 H (Neg-Trace) mg/dL Urine Ketones 80 H (Negative) mg/dL Urine Blood Moderate H (Negative) Urine Nitrite Positive H (Negative) Urine Bilirubin Small H (Negative) Urine Urobilinogen 1.0 H (Up to 0.2) mg/dL Ur Leukocyte Esterase Small H (Negative) Urine RBC 0-2 (0-2) HPF Urine WBC 10-20 H (0-5) HPF Ur Epithelial Cells Few (Negative) HPF Urine Crystals Negative (Negative) HPF Urine Bacteria Many (Negative) HPF Urine Casts 0-2 Coarse Granular (Negative) LPF Urine Mucus Trace (Negative) Ur Culture Indicated? Yes Urine Glucose Negative (Negative) mg/dL B. divergens/MO-1 PCR Pending Babesia duncani (PCR) Pending Babesia microti DNA PCR Pending Lyme Disease Antibody Pending COVID-19 Source SARS-CoV-2 (PCR) (Negative) E.chaffeensis DNA (PCR) Pending E.ewingii/canis DNA PCR Pending E.muris eauclairensis (PCR) Pending Influenza Type A (PCR) (Negative) Influenza Type B (PCR) (Negative) RSV (PCR) (Negative) A. phagocytophilum (PCR) Pending Blood B. miyamotoi (PCR) Pending 04/02/25 11:10 Urine Culture - Pending Urine - Reflex from Ua 04/02/25 11:25 Blood Culture - Pending Blood 04/02/25 10:55 Blood Culture - Pending Blood Intake and Output - 24 Hour Total 04/02/25 10:03 thru 04/02/25 18:19 Intake Total 2049 Output Total 500 Balance 1550 Weight 78.29 kg Intake: IV 2049 Output: Urine 500 Other: Urine Color Hendry Urine Appearance Cloudy Sediment Urine Odor Normal Comment Pt reports strong odor with urination over last few days. Urine light orange, foamy, red/brown sediment. Falls Risk Assessment History of Falls No History 04/02/25 16:54 Contributing Factors No Factors 04/02/25 16:54 Ambulatory Aids Independent 04/02/25 16:54 Tubes/Lines W/no contributing factors 04/02/25 16:54 Gait Evaluation No gait disturbance 04/02/25 16:54 Fall Total Score 10 04/02/25 16:54 Level of Risk Standard/Low Risk 04/02/25 16:54 Problems (Last Reviewed 02/13/25 @ 06:39 by Manolo Sow MD) Fe deficiency anemia (Acute) Hypomagnesemia (Acute) Hypotension (Acute) Hypothyroidism (Chronic 03/16/12) Pyelonephritis (Acute) Thrombocytopenia (Chronic) v v v v v v v v v Sending and/or Receiving Nurses: Please use comment section below to note any information pertinent to the patient hand-off not included above. Information / Comments: Paged [phone]. Took report [id number]. All questions answered. Report received from: NEHA Voss RN
[2025-04-02] MEDS: Normal Saline 1,000 ML 125 ML IV (19:06)
[2025-04-02] MEDS: Melatonin 3 MG TAB 6 MG PO (23:45)
[2025-04-03] VITALS (7 sets, daily range): BP systolic 101–142; BP diastolic 62–124; PULSE 91–106; RESP 16–19; TEMP 35.9–37.5; O2SAT 91–99
--- NOTE | 2025-04-03 00:45 | RT.EKG_ITS ---
APPROVED REPORT Exam: Resting ECG Reason for Exam: Tachycardia Patient Location: I HR:165 bpm ECG Measurements Heart Rate 165 AXIS IN [id number] P [id number] QRSd 78 QRS 64 QT 271 T -44 QTc 449 Conclusion Atrial fibrillation...V-rate 128-185, irreg A-activity Ventricular premature complex...V complex w/ short R-R interval Borderline low voltage, extremity leads...all extremity leads <0.6mV
[2025-04-03] MEDS: Normal Saline 1,000 ML 125 ML IV ×2 (02:54→11:16)
[2025-04-03] MEDS: Ketorolac 15 MG/ML VIAL IVP ×2 (03:37→09:45)
[2025-04-03 06:25] LABS: Abs Immature Grans 0.09 10^3/uL (0.0-0.06); HCT 35.9 % (36.0-46.0); HGB 11.8 g/dL (11.2-15.7); Immature Grans % 0.8 %; MCH 28.6 pg (27.0-33.0); MCHC 32.9 % (32.0-36.0); MCV 87 fL (80-95); MPV 12.0 fL (8.0-11.0); RBC 4.12 10^6/uL (3.93-5.22); RDW 13.8 % (11.7-14.6); RDW-SD 44.2 fL; WBC 11.26 10^3/uL (4.4-10.8)
[2025-04-03 06:38] LABS: Anion Gap 5.8 mmol/L (3-11); BUN 8 mg/dL (7-18); CO2 25.2 mmol/L (21.0-32.0); Calcium 8.0 mg/dL (8.5-10.1); Chloride 107 mmol/L (98-107); Estimated GFR 79.35 (mL/min/1.73m2); Glucose 112 mg/dL (74-106); Magnesium 1.8 mg/dL (1.8-2.4); Potassium 3.7 mmol/L (3.5-5.1); Sodium 138 mmol/L (136-145)
[2025-04-03 06:44] LABS: Platelet Count 80 10^3/uL (130-400); RBC Morphology Normal
[2025-04-03 06:57] LABS: Ferritin 227 ng/mL (8-252)
[2025-04-03 07:14] LABS: Iron 7 ug/dL (50-170); Total Iron Binding Capacity 144 ug/dL (250-450); Transferrin Sat 5 % (15-50)
[2025-04-03] MEDS: Liothyronine 5 MCG TAB PO (07:37)
[2025-04-03] MEDS: Levothyroxine 150 MCG TAB PO (07:37)
[2025-04-03] MEDS: Normal Saline Flush 10 ML SYR IVP ×2 (07:38→20:38)
[2025-04-03] MEDS: Acetaminophen 500 MG TAB 1000 MG PO ×2 (08:05→17:29)
--- NOTE | 2025-04-03 09:01 | PDOC.CMIN ---
Date of service: 04/03/25 Time of Service: 09:01 Care Management Initial Assmt Initial Assessment Reason for Hospitalization: Pyelonephritis Functional Status/Living Situation Patient Presentation: Dorothea was sitting on the side of her bed when CM met with her. She had just met with the provider and seemed uncomfortable. During the conversation, Dorothea indicated that she was not feeling well. When she was admitted with pyelonephritis yesterday, she was febrile (38.4C), tachycardic and hypotensive. Today she is afebrile and normotensive however she remains tachycardic. Her pain has been controlled with Ketorolac and scheduled Tylenol. Dorothea lives in [place] with her Rj. They have 2 children; their son is 23 years old and lives in [place] and their daughter is 21 and is at [employer]. 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 She does not have advanced directives but plans to download the forms from the web site and complete them post discharge. Town of Residence: [place] Resides with: Spouse (Chapo) Employment Status: Employed Instrumental Activities of Daily Living (ADLs): Independent Medications Medication Management: No Issues/Barriers identified Physical Functioning/Mobility Assistive Device: none Advance Directives Advance Directives: Do you have an Advance Directive: N 07/20/18, 14:51 AD On File at [facility]: N 07/20/18, 14:51 Date Asked 04/03/25 Today, 11:09 AD Date Reviewed COLST On File at [facility] COLST Date Scanned Code Status Resuscitation Status Full Code Insurance Coverage/Financial Issues Insurance: /[facility] Care Team Visit Care Team Role Provider Type Alma Delia Quinonez NP MD [facility] STAFF PHYSICIAN Kaylee Bangura MD, [place] Primary Care Provider [facility] Ann Maya MD Emergency Provider [facility] STAFF PHYSICIAN Jack Gardner MD Admit Provider [facility] STAFF PHYSICIAN Attending Provider Discharge Potential Discharge Needs: PCP F/U Appt and Surgical F/U Appt Anticipated Barriers to Discharge: None Identified Patient/Family Education Needs: Review discharge instructions, discuss Ask Me Three Transportation: Private vehicle Plan: Anticipate Dorothea will be discharged home with no new services when medically cleared. She will follow up with her community providers and plan of care and transport with family. CM will folow and cintinue to support discharge planning efforts. Social Determinants of Health Screening Social Determinants of health last assessed in clinic: 04/03/25 Will the Patient Participate in the Screening?: Yes Do you worry about having a steady place to live?: no Problems where you live: no known problems In the past 12 months, have you had to go without electric, gas, oil or water in your home?: no 1. Within the past 12 months, we worried whether our food would run out before we got money to buy more.: Never true 2. Within the past 12 months, the food we bought just didn't last and we didn't have money to get more.: Never true Has lack of transportation kept you from medical appointments or from doing things needed for daily living?: no Has anyone in your life made you feel unsafe or unsupported?: no How hard is it for you to pay for the very basics like food, housing, medical care, and heating? Would you say it is:: Not hard at all Do you want help finding or keeping work or a job?: I do not need or want help If for any reason you need help with day-to-day activities such as bathing, preparing meals, shopping, managing finances, etc., do you get the help you need?: I don?t need any help How often do you feel lonely or isolated from those around you?: Never Do you speak a language other than Azeri at home?: No Does the patient want assistance with any of the above?: No PFSH All Active Problems (Updated 04/02/25 @ 17:46 by Alma Delia Quinonez NP) Thrombocytopenia (Chronic) Hypotension (Acute) Hypomagnesemia (Acute) Pyelonephritis (Acute) Pelvic pain (Acute) Bilateral hip pain (Acute) Wound dehiscence, surgical (Acute) History of total left knee replacement (Acute 12/05/24) Intermittent palpitations (Acute) DJD (degenerative joint disease) of knee (Acute) Annual physical exam (Acute) Hypothyroidism (Chronic 03/16/12) SURAJ; ENDOCRINE MI ([facility]); HASHIMOTOS, THYROID NODULE, GOITER Status post dilation and curettage (Acute) Encounter for screening colonoscopy (Acute) Family history of skin cancer (Acute) Patellofemoral arthralgia of left knee (Acute) Fe deficiency anemia (Acute) RUQ abdominal pain (Acute) Sessile serrated polyp of colon (Acute ~01/27/23) Gastritis (Acute ~01/27/23) DUB (dysfunctional uterine bleeding) (Acute) Thickened endometrium (Acute) Shoulder pain (Acute) Medical History Right foot pain Sacral back pain Mild intermittent reactive airway disease (08/20/15) Pt. denies Iron deficiency (03/16/13) Goiter (08/23/04) H/O POST GOITER; h/o hypothyroid and abnl antimicrosomal ab 2005 Gastroesophageal reflux disease (03/15/12) Surgical History H/O arthroscopy of left knee (07/11/24) History of colonoscopy with polypectomy (~01/27/23) History of esophagogastroduodenoscopy (EGD) (~01/27/23) Hx of appendectomy Endometrial Biopsy (05/18/14) [facility] Family History Father Diabetes Essential hypertension Skin cancer Social History Smoking/Tobacco Use Status: Never Second Hand Exposure: No Smoking risk assessment performed?: Yes Alcohol Intake: current Alcohol Intake frequency: a few times a month Drug use: Never Substance use type: does not use Caregiver/Support person: No Household members: spouse Housing: house Communication Needs: None Do you need help understanding health information?: Never Pets and animals: Yes Pets and animals: dog(s) Sexually active: Yes Do you think of yourself as: straight/heterosexual Current gender identity: female What is your relationship status?: How often do you talk on the phone with friends or family?: once per week How often do you get together with friends or relatives?: once per week How often do you attend zoroastrian or roman catholic services?: decline to answer Do you belong to any clubs or organized social groups?: yes Panel score (0-1 are the most socially isolated patients): 2 What type of physical activity do you participate in: weight lifting Duration: 15-30 minutes/day Frequency: 3-4 times per week Jeanette/Zoroastrianism: No preference Special jeanette needs: No Seatbelt use: always Helmet use: Yes Helmet use: always Drive intox or ride w/intox test driver: No Do you feel safe at home: Yes Do you feel safe in your relationship?: Yes History History 2 Para 2 Hx # Term Pregnancies Multiple births Hx # Pregnancies Ectopic pregnancies AB induced Hx Number of Living Children AB spontaneous
[2025-04-03] MEDS: cefTRIAXone 1 GM/50 ML BAG IVPB (11:15)
[2025-04-03] MEDS: IRON SUCROSE COMPLEX 300 MG in Normal Saline 250 ML 167 MG IVPB (12:04)
--- NOTE | 2025-04-03 12:55 | PGE_ITS ---
Date of Service Date of service: 04/03/25 Time of Service: 12:56 Assessment and Plan Assessment and plan (1) Pyelonephritis: Status: Acute Assessment and plan: Acute right-sided pyelonephritis with systemic symptoms Continue NS 125 ml/h - push oral fluids * Continue IV antibiotics and close monitoring * Continue ceftriaxone; adjust per culture and sensitivity results * Blood and urine cultures pending - BC neg @ 24h - urince cx - escherichia coli - continue ceftriaxone * Antipyretics PRN for fever (acetaminophen preferred) (2) Hypomagnesemia: Status: Resolved Assessment and plan: 1.8 today (3) Hypotension: Status: Resolved Assessment and plan: 109/67 * Likely secondary to infection/dehydration * Continue IV fluids at maintenance; reassess BP and volume status (4) Thrombocytopenia: Status: Chronic Assessment and plan: * Possibly infection-related; baseline unknown * Monitor platelet count daily - 80 * Hold anticoagulation if platelets drop <50K or bleeding develops (5) Hypothyroidism: Status: Chronic Assessment and plan: Continue home levothyroxine and liothyronine TSH 0.65 03/29/25 - defer to pcp (6) Fe deficiency anemia: Status: Acute Assessment and plan: Hgb currently normal; monitor during admission Iron 7 - hgb 11 down from 13, but probably dilutional from IVF Subjective Subjective Patient reports: no new complaints, still having pain, pain is less, tolerating a regular diet, voiding w/o difficulty, bowel movement and afebrile; denies flatus, diarrhea, blood in stool, nausea, vomiting or shortness of breath Interval history since last seen: Patient is awake and alert, concerned she is bleeding internally because of her iron levels. We did discuss that her hemoglobin is ok and her vital signs are ok. Discussed iron deficiency anemia vs blood loss anemia. She said she felt better after our conversation and understands. Exam Narrative Exam Narrative: General: Alert, uncomfortable-appearing HEENT: Sclera anicteric CV: Regular tachycardia, strong distal pulses Lungs: Clear to auscultation Abdomen: Soft, nondistended, minimal RUQ tenderness, negative Spence?s, no rebound or guarding Neuro: No focal deficits, normal gait Skin: No rash, cyanosis Psych: Appropriate affect Objective Last Vital Signs Temp 36.7 C 04/03/25 11:11 Pulse 91 H 04/03/25 11:11 Resp 16 04/03/25 11:11 BP 101/62 04/03/25 11:11 Pulse Ox 97 04/03/25 11:11 Laboratory Results - last 24 hr 04/02/25 04/03/25 13:33 06:11 WBC 11.26 H RBC 4.12 Hgb 11.8 Hct 35.9 L MCV 87 MCH 28.6 MCHC 32.9 RDW 13.8 Plt Count 80 L MPV 12.0 H Immature Gran % 0.8 Neutrophils % 87.0 Lymphocytes % 4.4 Monocytes % 7.4 Eosinophils % 0.2 Basophils % 0.2 Nucleated RBC % 0.0 Absolute Neutrophils 9.80 H Absolute Lymphocytes 0.50 L Absolute Monocytes 0.83 H Absolute Eosinophils 0.02 Absolute Basophils 0.02 RBC Morphology Normal Sodium 138 Potassium 3.7 Chloride 107 Carbon Dioxide 25.2 Anion Gap 5.8 BUN 8 Creatinine 0.9 Est GFR (CKD-EPI 2020) 79.35 Glucose 112 H Calcium 8.0 L Magnesium 1.8 Iron 7 L TIBC 144 L Transferrin % Sat 5 L Ferritin 227 Troponin I Cancelled PAWSS Have you Been Recently Intoxicated or Drunk Within the Last 30 days?: No Have you Ever Experienced Previous Episodes of Alcohol Withdrawal?: No Have you ever Experienced Withdrawal Seizures?: No Have you ever Experienced Delirium Tremens(DT)s?: No Have you ever undergone Alcohol Rehabilitation Treatment (i.e, inpt ot outpatient treatment programs)?: No Have you ever Experienced Blackouts?: No Have you ever Combined Alcohol with other Downers within the last 90 days?: No Have you ever Combined Alcohol with any other Substance of Abuse during the last 90 days?: No Positive Blood Alcohol level on Presentation? [PCS.BAL]: No Evidence of Increased Autonomic Activity (i.e. HR>120, tremor, sweating, agitation, nausea)?: No Result: 0 Time Spent with Patient Time Spent with Patient: 25-34 minutes Time was spent: preparing to see the patient(eg.review tests), ordering medications,tests, procedures, referring, communicating with other health transitions rn care coordinator, indepentently interpreting results, counseling the patient and care coordination
--- NOTE | 2025-04-03 13:24 | PHA.REVIEW2 ---
Pharmacy Admission Review Admission Clinical Review Admission Pharmacy Review: Hypotension (Acute) Hypomagnesemia (Acute) Pyelonephritis (Acute) Fe deficiency anemia (Acute) clindamycin Allergy (Intermediate, Verified 04/02/25 10:17) Rash Penicillins Allergy (Mild, Verified 04/02/25 10:17) rash morphine Adverse Reaction (Severe, Verified 04/02/25 10:17) HALLUCINATIONS promethazine Adverse Reaction (Severe, Verified 04/02/25 10:17) TONIC/CLONIC REACTION Resuscitation Status Full Code Height 5 ft 5 in Weight 78.29 kg Pharmacy Admission Review Renal Dosing Renal Dosing: BUN 8 mg/dL (7-18) 04/03/25 06:11 Creatinine 0.9 mg/dL (0.55-1.02) 04/03/25 06:11 Medications needing adjustments: Reviewed (CrCl 79.92 mL/min, SCr decreased from 1.1) List of meds needing interventions: Current medications are okay Anticoagulation Anticoagulation: Hgb 11.8 g/dL (11.2-15.7) 04/03/25 06:11 Hct 35.9 % (36.0-46.0) L 04/03/25 06:11 Plt Count 80 10^3/uL (130-400) L 04/03/25 06:11 Creatinine 0.9 mg/dL (0.55-1.02) 04/03/25 06:11 DVT Prophylaxis: Reviewed (SCDs - thrombocytopenia, PLT count decreased from 105) Opiate Usage Evaluate Pain Scale/Pains Meds: Reviewed (hydromorphone 0.5mg IVP q4h PRN - no doses given so far) Scheduled Bowel Reg ordered if on Opiates?: No (PRN Miralax) Relevant Labs Relevant Labs: Sodium 138 mmol/L (136-145) 04/03/25 06:11 Potassium 3.7 mmol/L (3.5-5.1) 04/03/25 06:11 Chloride 107 mmol/L (98-107) 04/03/25 06:11 Magnesium 1.8 mg/dL (1.8-2.4) 04/03/25 06:11 Electrolytes, C-Reactive P, ESR: Reviewed Cardiac Review Cardiac Review: Troponin I Cancelled 04/02/25 13:33 BP, HR, EF%: Reviewed (BP WNL, HR 91) QTc Review QTc: Reviewed (449 from 04/03/25) IV to PO Switch IV Medications: Reviewed (ceftriaxone, hydromorphone and ketorolac) Home Meds Home Med List reviewed: Reviewed Relevent Home Meds Not ordered & why?: celecoxib (PRN) and Zepbound (weekly) Current Meds Current Medication Order Review: Intervened Comments: Changed ceftriaxone timing to be on even hour per pharmacy protocol Changed IV ED access order Added 2nd PRN to melatonin order per pharmacy protocol Added patch removal order for lidocaine patch Pharmacy Antibiotic Review Relevant Labs: WBC 11.26 10^3/uL (4.4-10.8) H 04/03/25 06:11 Temperature 36.7 C Temperature 36.7 C Temperature 35.9 C Microbiology 04/02/25 10:55 Blood Culture - Preliminary Blood NO GROWTH 24 HOURS 04/02/25 11:10 Urine Culture - Preliminary Urine - Reflex from Ua Escherichia coli Pharmacy Antibiotic Activity: C/S review and Reviewed, no change Comments: Patient is on ceftriaxone, day 1, for pyelonephritis. WBC decreased from 14.71.
[2025-04-03 13:51] LABS: Lyme Ab w Rflx to Lyme Confirm Negative (Negative)
--- NOTE | 2025-04-03 14:20 | CHAPLAIN ---
I visited with Dorothea this morning. Her was with her. I explained my role and offered support. Dorothea didn't seem interested in further conversation. 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
[2025-04-03] MEDS: Ketorolac 30 MG/ML VIAL IVP (14:25)
[2025-04-03] MEDS: Normal Saline 250 ML 500 ML IV (14:34)
[2025-04-03] MEDS: HYDROmorphone 2 MG/ML SYR 0.5 MG IVP ×2 (16:49→22:18)
[2025-04-03] MEDS: Lidocaine 5% Patch 1 PATCH TP (22:24)
--- NOTE | 2025-04-04 | DI.US_ITS ---
Exam(s) US RENAL EXAM: US RENAL CLINICAL HISTORY: Pylo. TECHNIQUE: Bledsoe scale imaging and color doppler were used. COMPARISON: US US ABDOMEN from 02/01/2023 US US PELVIS TRANSVAGINAL from 03/06/[address] ABDOMEN PELVIS W from 04/02/2025 FINDINGS: Right kidney: 11.7cm Echogenicity: Mildly heterogeneous parenchyma. No focal fluid collection, abscess or perinephric collection. Hydronephrosis: Mild dilatation the right renal pelvis, similar to recent CT. Cyst or mass: No Nephrolithiasis: No Left kidney: 11.9cm Echogenicity: Normal Hydronephrosis: No Cyst or mass: No Nephrolithiasis: No Bladder:Normal. Both ureteral jets were visualized. Prevoid vol:85 cc Postvoid vol:2 cc IMPRESSION: Mildly heterogeneous parenchyma of the right kidney. Mild dilatation of the right renal pelvis. No abscess or perinephric collection. DATA REPOSITORY:
[2025-04-04 02:10] VITALS: BP 108/54; PULSE 94; RESP 19; TEMP 37.2; O2SAT 95
[2025-04-04] MEDS: Acetaminophen 500 MG TAB 1000 MG PO ×3 (02:19→14:56)
[2025-04-04] MEDS: Ketorolac 15 MG/ML VIAL IVP ×2 (02:19→10:09)
[2025-04-04] MEDS: HYDROmorphone 2 MG/ML SYR 0.5 MG IVP (02:27)
[2025-04-04] MEDS: Liothyronine 5 MCG TAB PO (05:59)
[2025-04-04] MEDS: Levothyroxine 150 MCG TAB PO (05:59)
[2025-04-04 07:04] VITALS: BP 111/74; PULSE 77; RESP 16; TEMP 36.7; O2SAT 96
[2025-04-04 07:06] LABS: Abs Immature Grans 0.07 10^3/uL (0.0-0.06); HCT 34.4 % (36.0-46.0); HGB 11.3 g/dL (11.2-15.7); Immature Grans % 0.8 %; MCH 29.5 pg (27.0-33.0); MCHC 32.8 % (32.0-36.0); MCV 90 fL (80-95); MPV 11.6 fL (8.0-11.0); RBC 3.83 10^6/uL (3.93-5.22); RDW 14.6 % (11.7-14.6); RDW-SD 48.1 fL; WBC 8.45 10^3/uL (4.4-10.8)
[2025-04-04 07:12] LABS: Anion Gap 7.5 mmol/L (3-11); BUN 8 mg/dL (7-18); CO2 23.5 mmol/L (21.0-32.0); Calcium 8.2 mg/dL (8.5-10.1); Chloride 108 mmol/L (98-107); Estimated GFR 79.35 (mL/min/1.73m2); Glucose 106 mg/dL (74-106); Magnesium 1.9 mg/dL (1.8-2.4); Potassium 3.6 mmol/L (3.5-5.1); Sodium 139 mmol/L (136-145)
[2025-04-04 07:38] LABS: Platelet Count 92 10^3/uL (130-400); RBC Morphology Normal
[2025-04-04] MEDS: Normal Saline 1,000 ML 125 ML IV (08:26)
--- NOTE | 2025-04-04 08:56 | PDOC.CMPRO ---
Date of service: 04/04/25 Time of Service: 08:56 Care Management Progress Note Discharge Potential Discharge Needs: PCP F/U Appt Anticipated Barriers to Discharge: None Identified Patient/Family Education Needs: Review discharge instructions, discuss Ask Me Three Transportation: Private vehicle Plan: Anticipate Dorothea will be discharged home with no new services when medically cleared. She will follow up with her community providers and plan of care and transport with family. CM will follow and continue to support discharge planning efforts. Social Determinants of Health Screening Social Determinants of health last assessed in clinic: 04/03/25 Will the Patient Participate in the Screening?: Yes Do you worry about having a steady place to live?: no Problems where you live: no known problems In the past 12 months, have you had to go without electric, gas, oil or water in your home?: no Has lack of transportation kept you from medical appointments or from doing things needed for daily living?: no Has anyone in your life made you feel unsafe or unsupported?: no How hard is it for you to pay for the very basics like food, housing, medical care, and heating? Would you say it is:: Not hard at all Do you want help finding or keeping work or a job?: I do not need or want help If for any reason you need help with day-to-day activities such as bathing, preparing meals, shopping, managing finances, etc., do you get the help you need?: I don?t need any help How often do you feel lonely or isolated from those around you?: Never Do you speak a language other than Georgian at home?: No Does the patient want assistance with any of the above?: No
--- NOTE | 2025-04-04 08:57 | CMDISCH_ITS ---
Date of service: 04/04/25 Time of Service: 08:57 LACE Index Scoring Tool Questions: Length of Stay (in days): 2 Was the patient admitted via the E.D.?: Yes E.D. Visits: 1 Answers: Total Score: 6 Risk of Readmission: Low Risk Care Management Discharge Plan Reason for Hospitalization: Pyelonephritis Discharge Plan: Dorothea will be discharged home with no new services. She will follow up with her community providers and plan of care and transport with [facility]. Patient/Family Education Needs: Review discharge instructions, discuss Ask Me Three
[2025-04-04] MEDS: IRON SUCROSE COMPLEX 300 MG in Normal Saline 250 ML 167 MG IVPB (09:59)
[2025-04-04] MEDS: Normal Saline Flush 10 ML SYR IVP (10:09)
[2025-04-04 11:07] VITALS: BP 104/68; PULSE 81; RESP 16; TEMP 36.5; O2SAT 96
[2025-04-04] MEDS: cefTRIAXone 1 GM/50 ML BAG IVPB (12:12)
[2025-04-04 14:26] LABS: B. miyamotoi PCR Negative (Negative); Babesia divergens/MO-1 Negative (Negative); Ehrlichia muris eauclairensis Negative (Negative)
[2025-04-04] MEDS: Famotidine 20 MG TAB 40 MG PO (14:59)
[2025-04-04 15:05] VITALS: BP 116/94; PULSE 82; RESP 16; TEMP 37.1; O2SAT 100
--- NOTE | 2025-04-04 15:17 | DSE_ITS ---
Date of service: 04/04/25 Time of Service: 15:17 DS: Diagnosis Discharge Diagnosis (1) Pyelonephritis: Status: Acute (2) Hypomagnesemia: Status: Resolved (3) Hypotension: Status: Resolved (4) Thrombocytopenia: Status: Chronic (5) Hypothyroidism: Status: Chronic (6) Fe deficiency anemia: Status: Acute Discharge Plan Disposition Patient Disposition: Home Condition: Good Discharge Details Reason For Visit: Pylonephritis Admit Date/Time: 04/02/25 16:02 Admit Provider: Jack Gardner Attending Provider: Jack Gardner Primary Care Provider: Kaylee Bangura Hospital Course Hospital Course: Patient presents with 3 days of body aches, rigors, shaking chills, and right upper quadrant/flank pain. She reports no dysuria, hematuria, nausea, vomiting, or diarrhea. Past surgical history includes appendectomy; no cholecystectomy. She self-administered acetaminophen and celecoxib with partial relief. In the ED, she was hypotensive (BP 86/61) and tachycardic (HR 120 bpm). Labs revealed leukocytosis (14.7), thrombocytopenia (105), creatinine 1.1, magnesium 1.5. Urinalysis suggested infection, and CT abdomen/pelvis confirmed right-sided pyelonephritis. COVID-19 and influenza testing were negative. She received IV fluids, ceftriaxone, and magnesium replacement. Admitted for IV antibiotics and monitoring. 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 2 doses and ferrous sulfate 324 mg oral daily x 30 days * Patient reported bloating and GERD symptoms; famotidine 20 mg BID ? 6 weeks prescribed * Stool occult blood negative * Renal Ultrasound: mild changes in the right kidney tissue, (probably due to infection), no abscess or collection of fluid around the kidney. Discharge Medications Medication Dose / Route Instructions Cefalexin 500 mg PO QID Complete 7 - day course Famotidine 20 mg PO BID 6 weeks for GERD symptoms Levothyroxine 150 mcg PO daily Continue home therapy Liothyronine 5 mcg PO daily Continue home therapy Acetaminophen 500 mg PO Q6H PRN Max 4 g/day Ferrous Sulfate 324 mg PO daily until advised by PCP to stop Follow-Up / Recommendations * Follow-up with PCP within 1 week * Monitor for fever, worsening flank pain, or other infection signs * Continue cefalexin 500 mg four times a day for 7 days * Start Ferrous sulfate 324 mg daily and monitor for GI side effects * Start famotidine 20 mg twice a day * Continue thyroid medications as prescribed * Seek immediate care for severe abdominal pain, or bleeding Patient clinically improved and discharged home in stable condition. Recommendations for Follow Up Recommended tests to be ordered by follow up provider: Recommend BMP (Cr, BUN, Mg), CBC (PLT), Iron Home Meds and New Rx's Prescriptions: New cephalexin 500 mg capsule 500 mg PO QID 9 Days Qty: 36 0RF Rx Instructions: Start 04/03/2025 ferrous sulfate 324 mg (65 mg iron) tablet,delayed release (DR/EC) 324 mg PO DAILY Qty: 30 0RF famotidine 20 mg tablet 20 mg PO BID 42 Days Qty: 84 0RF Continued Mirena 21 mcg/24 hours (8 yrs) 52 mg intrauterine device 1 device intrauterine ONCE Qty: 1 0RF Rx Instructions: as a single dose levothyroxine 150 mcg tablet 150 mcg PO DAILY Qty: 90 3RF liothyronine 5 mcg tablet 5 mcg PO DAILY Qty: 90 3RF tirzepatide (weight loss) 7.5 mg/0.5 mL pen injector 7.5 mg subcut QWEEK Qty: 8 4RF celecoxib 200 mg capsule See Rx Instructions .ROUTE .COMPLEX Qty: 60 0RF Dose Instruction: TAKE 1 CAPSULE(200 MG) BY MOUTH TWICE DAILY NEEDED FOR PAIN OR PAIN AND INFLAMMATION Rx Instructions: TAKE 1 CAPSULE(200 MG) BY MOUTH TWICE DAILY NEEDED FOR PAIN OR PAIN AND INFLAMMATION acetaminophen 500 mg tablet 1,000 mg PO Q8H PRN Qty: 90 0RF Rx Instructions: Take two tablets up to every 8 hours as needed for pain Discharge Instructions Instructions: Urinary tract infections in adults, Anemia caused by low iron in adults - Discharge instructions Additional Instructions: Medications * Cefalexin: Finish all pills 500 mg four times a day for 7 days * Famotidine: 20 mg - take 2 times a day for 6 weeks * Levothyroxine & Liothyronine: Take as usual for thyroid * Acetaminophen: For pain/fever, max 4 g/day * Iron: 324 mg daily * Tirzepatide (GLP-1): Can cause bloating, gas, nausea, or feeling full quickly. Usually improves over time. * Take with or after food * Eat small, frequent meals * Avoid gas-producing foods if possible * Report severe or persistent symptoms to your doctor Fluids & Food * Drink plenty of water * Eat iron-rich foods (meat, beans, spinach) * Take famotidine with meals Activity * Rest as needed * Slowly return to normal activities Watch for * Fever or chills * Worsening belly/flank pain * Trouble urinating * Bleeding or easy bruising * Dizziness or fainting Follow-Up * See your doctor in 1 week * Labs may be checked by your PCP Call 911 or Go to ED If * High fever, severe pain, or vomiting * Chest pain or trouble breathing * Heavy bleeding Activity:: Activity as Tolerated Equipment/Supplies:: No Equipment Needed Diet:: As Tolerated DS: Summary Time Spent with Patient providing and/or coordinating discharge services: Greater than 30 minutes Status at Discharge Functional status at discharge: independent ambulation Overall status at discharge: patient is progressing back to baseline Mental Status: mental status grossly normal Speech and Movement: speech and movement normal Mood: congruent mood Affect: normal affect Exam Narrative Exam Narrative: General: Alert, comfortable-appearing HEENT: Sclera anicteric CV: Regular tachycardia, strong distal pulses Lungs: Clear to auscultation Abdomen: Soft, nondistended, minimal RUQ tenderness, negative Spence?s, no rebound or guarding Neuro: No focal deficits, normal gait Skin: No rash, cyanosis Psych: Appropriate affect Psych Mental Status: mental status grossly normal Speech and Movement: speech and movement normal Mood: congruent mood Affect: normal affect DS: Data Vitals/I&O Vitals and I&O: Vital Signs Temperature 37.1 C 04/04/25 15:05 Temperature Source Temporal Artery Scan 04/04/25 15:05 Pulse 82 04/04/25 15:05 Pulse Rhythm Regular 04/02/25 16:54 Pulse 120 H 04/02/25 15:01 Respiratory Rate 16 04/04/25 15:05 Respiratory Effort Normal, Non-Labored 04/02/25 16:54 Respiratory Depth Normal 04/02/25 16:54 Respiratory Pattern Normal 04/02/25 16:54 Blood Pressure 116/94 H 04/04/25 15:05 Blood Pressure Mean 101 04/04/25 15:05 Pulse Oximetry 100 04/04/25 15:05 Oxygen Delivery Method Room Air 04/04/25 15:05 Oxygen Flow Rate 0 04/04/25 15:05 Pain Level 5 04/04/25 14:56 Comment RN in room pt given pain meds 04/04/25 15:05 Intake & Output 04/03/25 04/04/25 04/04/25 23:59 11:59 23:59 Intake Total 2235 / 4501 6 / 1061 1055 / 1061 Output Total 800 / 2250 1200 / 1200 Balance 1435 / 2251 -1194 / -139 1055 / -139 Intake: IV 1515 / 3541 265 / 265 Oral 720 / 960 6 / 796 790 / 796 Output: Urine 800 / 2250 1200 / 1200 Other: Urine Color Straw Dark Qing Pale Yellow Urine Appearance Clear Clear Urine Odor Strong Strong None Comment it's only one time order . pt. void normal foamy Data Completed and Pending Labs on day of discharge: Labs from last 24 hours 04/04/25 06:35 WBC 8.45 RBC 3.83 L Hgb 11.3 Hct 34.4 L MCV 90 MCH 29.5 MCHC 32.8 RDW 14.6 Plt Count 92 L MPV 11.6 H Immature Gran % 0.8 Neutrophils % 77.0 Lymphocytes % 12.9 Monocytes % 7.7 Eosinophils % 1.2 Basophils % 0.4 Nucleated RBC % 0.0 Absolute Neutrophils 6.51 Absolute Lymphocytes 1.09 L Absolute Monocytes 0.65 Absolute Eosinophils 0.10 Absolute Basophils 0.03 RBC Morphology Normal Sodium 139 Potassium 3.6 Chloride 108 H Carbon Dioxide 23.5 Anion Gap 7.5 BUN 8 Creatinine 0.9 Est GFR (CKD-EPI 2020) 79.35 Glucose 106 Calcium 8.2 L Magnesium 1.9 Preliminary micro results at discharge 04/02/25 11:25 Blood Blood Culture - Preliminary NO GROWTH 48 HOURS 04/02/25 10:55 Blood Blood Culture - Preliminary NO GROWTH 48 HOURS PFSH All Active Problems (Updated 04/04/25 @ 14:42 by Alma Delia Quinonez NP) Thrombocytopenia (Chronic) Pyelonephritis (Acute) Pelvic pain (Acute) Bilateral hip pain (Acute) Wound dehiscence, surgical (Acute) History of total left knee replacement (Acute 12/05/24) Intermittent palpitations (Acute) DJD (degenerative joint disease) of knee (Acute) Annual physical exam (Acute) Hypothyroidism (Chronic 03/16/12) SURAJ; ENDOCRINE [place] [place] HASHIMOTOS, THYROID NODULE, GOITER Status post dilation and curettage (Acute) Encounter for screening colonoscopy (Acute) Family history of skin cancer (Acute) Patellofemoral arthralgia of left knee (Acute) Fe deficiency anemia (Acute) RUQ abdominal pain (Acute) Sessile serrated polyp of colon (Acute ~01/27/23) Gastritis (Acute ~01/27/23) DUB (dysfunctional uterine bleeding) (Acute) Thickened endometrium (Acute) Shoulder pain (Acute) Medical History Right foot pain Sacral back pain Mild intermittent reactive airway disease (08/20/15) Pt. denies Iron deficiency (03/16/13) Goiter (08/23/04) H/O POST GOITER; h/o hypothyroid and abnl antimicrosomal ab 2004 Gastroesophageal reflux disease (03/15/12) Surgical History H/O arthroscopy of left knee (07/11/24) History of colonoscopy with polypectomy (~06/07/23) History of esophagogastroduodenoscopy (EGD) (~01/27/23) Hx of appendectomy Endometrial Biopsy (05/18/14) [facility] Family History Father Diabetes Essential hypertension Skin cancer Social History Smoking/Tobacco Use Status: Never Second Hand Exposure: No Smoking risk assessment performed?: Yes Alcohol Intake: current Alcohol Intake frequency: a few times a month Drug use: Never Substance use type: does not use Caregiver/Support person: No Household members: spouse Housing: house Communication Needs: None Do you need help understanding health information?: Never Pets and animals: Yes Pets and animals: dog(s) Sexually active: Yes Do you think of yourself as: straight/heterosexual Current gender identity: female What is your relationship status?: How often do you talk on the phone with friends or family?: once per week How often do you get together with friends or relatives?: once per week How often do you attend latter day or mu-ism services?: decline to answer Do you belong to any clubs or organized social groups?: yes Panel score (0-1 are the most socially isolated patients): 2 What type of physical activity do you participate in: weight lifting Duration: 15-30 minutes/day Frequency: 3-4 times per week Jeanette/Episcopalian: No preference Special jeanette needs: No Seatbelt use: always Helmet use: Yes Helmet use: always Drive intox or ride w/intox service car driver: No Do you feel safe at home: Yes Do you feel safe in your relationship?: Yes History History 2 Para 2 Hx # Term Pregnancies Multiple births Hx # Pregnancies Ectopic pregnancies AB induced Hx Number of Living Children AB spontaneous Time Spent with Patient Time Spent with Patient: 45-69 minutes Time was spent: preparing to see the patient(eg.review tests), ordering medications,tests, procedures, referring, communicating with other health dialysis patient care technician, indepentently interpreting results, counseling the patient and care coordination
== END 2025-04-04 16:00 | disposition home or self-care (01) | DRG 690 ==
LOC: ER 15:49 → MS 16:52
PROVIDERS: Admitting Provider Family Medicine; Emergency Provider Emergency Medicine; PCP Family Medicine; Responsible Provider Nurse Practitioner Family; Visit Provider Family Medicine
DX: N10 Acute pyelonephritis (principal); I95.9 Hypotension, unspecified; E83.42 Hypomagnesemia; D69.6 Thrombocytopenia, unspecified; E03.9 Hypothyroidism, unspecified; D50.9 Iron deficiency anemia, unspecified; K29.70 Gastritis, unspecified, without bleeding; Z96.652 Presence of left artificial knee joint; J45.20 Mild intermittent asthma, uncomplicated; K21.9 Gastro-esophageal reflux disease without esophagitis; B96.20 Unspecified Escherichia coli [E. coli] as the cause of diseases classified elsewhere
CPT/HCPCS: 00123; 36415; 76770; 80048; 80053; 83690; 87040; 87077; 87637; 87798; 93005; 96361; 96365; 96366; 96367; 96375; 99285; 74177; 81003; 81015; 82272; 82728; 83540; 83550; 83605; 83735; 84484; 85025; 86618; 87086; 87186; 93010; 99222; 99232; 99239; J0131; J0696; J1171; J1756; J1885; J3475; J3490

== ENCOUNTER 2025-04-16 04:33 | Outpatient (CLI) | payer BC, SELFPAY ==
[2025-04-16 15:55] LABS: HCT 40.2 % (36.0-46.0); HGB 12.9 g/dL (11.2-15.7); MCH 29.1 pg (27.0-33.0); MCHC 32.1 % (32.0-36.0); MCV 91 fL (80-95); MPV 10.2 fL (8.0-11.0); Platelet Count 355 10^3/uL (130-400); RBC 4.43 10^6/uL (3.93-5.22); RDW 14.0 % (11.7-14.6); RDW-SD 46.4 fL; WBC 8.92 10^3/uL (4.4-10.8)
[2025-04-16 16:49] LABS: Anion Gap 6.7 mmol/L (3-11); BUN 16 mg/dL (7-18); CO2 29.3 mmol/L (21.0-32.0); Calcium 8.7 mg/dL (8.5-10.1); Chloride 104 mmol/L (98-107); Estimated GFR 78.86 (mL/min/1.73m2); Ferritin 975 ng/mL (8-252); Glucose 87 mg/dL (74-106); Potassium 4.3 mmol/L (3.5-5.1); Sodium 140 mmol/L (136-145)
[2025-04-16 16:53] LABS: Iron 71 ug/dL (50-170)
== END 2025-04-16 04:34 | disposition home or self-care (01) ==
LOC: LBO 04:33
PROVIDERS: PCP Family Medicine; Visit Provider Family Medicine
DX: D69.6 Thrombocytopenia, unspecified (principal); D50.9 Iron deficiency anemia, unspecified; N12 Tubulo-interstitial nephritis, not specified as acute or chronic
CPT/HCPCS: 36415; 80048; 85027; 82728; 83540

== ENCOUNTER 2025-05-14 09:31 | Outpatient (CLI) | payer BC, SELFPAY ==
[2025-05-14 09:08] LABS: HCT 41.7 % (36.0-46.0); HGB 13.7 g/dL (11.2-15.7); MCH 30.0 pg (27.0-33.0); MCHC 32.9 % (32.0-36.0); MCV 91 fL (80-95); MPV 10.9 fL (8.0-11.0); Platelet Count 194 10^3/uL (130-400); RBC 4.56 10^6/uL (3.93-5.22); RDW 12.8 % (11.7-14.6); RDW-SD 42.5 fL; WBC 5.18 10^3/uL (4.4-10.8)
[2025-05-14 10:04] LABS: Iron 66 ug/dL (50-170)
[2025-05-14 10:18] LABS: ALT 19 U/L (14-59); AST 20 U/L (15-37); Albumin 4.1 g/dL (3.4-5.0); Alkaline Phosphatase 53 U/L (46-116); Anion Gap 7.0 mmol/L (3-11); BUN 8 mg/dL (7-18); Bilirubin, Total 1.1 mg/dL (0.2-1.0); CO2 27.0 mmol/L (21.0-32.0); Calcium 9.3 mg/dL (8.5-10.1); Chloride 105 mmol/L (98-107); Estimated GFR 69.49 (mL/min/1.73m2); Ferritin 324 ng/mL (8-252); Glucose 101 mg/dL (74-106); Potassium 4.0 mmol/L (3.5-5.1); Sodium 139 mmol/L (136-145); TSH (W/Ref FT4) 0.31 uIU/mL (0.36-3.74); Total Protein 7.0 g/dL (6.4-8.2)
== END 2025-05-14 09:32 | disposition home or self-care (01) ==
LOC: LBO 09:31
PROVIDERS: PCP Family Medicine; Visit Provider Family Medicine
DX: E03.9 Hypothyroidism, unspecified (principal); D64.9 Anemia, unspecified; R00.2 Palpitations; D50.9 Iron deficiency anemia, unspecified; I10 Essential (primary) hypertension
CPT/HCPCS: 36415; 80053; 85027; 82728; 83540; 84439; 84443

== ENCOUNTER 2025-06-07 08:45 | Outpatient (REF) | payer BC, SELFPAY ==
[2025-06-07 14:53] LABS: Glucose Negative (Negative)
[2025-06-07 15:27] LABS: C & S Indicated? No; RBC Negative HPF (0-2); WBC 0-2 HPF (0-5)
== END 2025-06-07 08:46 | disposition home or self-care (01) ==
LOC: LBN 08:45
PROVIDERS: PCP Family Medicine; Visit Provider Family Medicine
DX: R35.0 Frequency of micturition (principal)
CPT/HCPCS: 81003; 81015

== ENCOUNTER 2025-06-29 14:06 | Outpatient (CLI) | payer BC, SELFPAY ==
[2025-06-29 14:16] LABS: Abs Immature Grans 0.01 10^3/uL (0.0-0.06); HCT 38.6 % (36.0-46.0); HGB 12.7 g/dL (11.2-15.7); Immature Grans % 0.2 %; MCH 29.5 pg (27.0-33.0); MCHC 32.9 % (32.0-36.0); MCV 90 fL (80-95); MPV 10.8 fL (8.0-11.0); Platelet Count 167 10^3/uL (130-400); RBC 4.30 10^6/uL (3.93-5.22); RDW 12.4 % (11.7-14.6); RDW-SD 40.8 fL; WBC 4.51 10^3/uL (4.4-10.8)
[2025-06-29 14:19] LABS: Glucose Negative (Negative)
[2025-06-29 14:35] LABS: Hemoglobin A1C 5.1 % (<5.7)
[2025-06-29 15:44] LABS: Iron 65 ug/dL (50-170)
[2025-06-29 17:42] LABS: ALT 16 U/L (14-59); AST 11 U/L (15-37); Albumin 3.5 g/dL (3.4-5.0); Alkaline Phosphatase 52 U/L (46-116); Anion Gap 8.7 mmol/L (3-11); BUN 8 mg/dL (7-18); Bilirubin, Total 0.5 mg/dL (0.2-1.0); CO2 28.3 mmol/L (21.0-32.0); Calcium 8.5 mg/dL (8.5-10.1); Chloride 104 mmol/L (98-107); Ferritin 218 ng/mL (8-252); Glucose 79 mg/dL (74-106); Potassium 3.6 mmol/L (3.5-5.1); Sodium 141 mmol/L (136-145); TSH (W/Ref FT4) 0.99 uIU/mL (0.36-3.74); Total Protein 6.5 g/dL (6.4-8.2)
== END 2025-06-29 14:07 | disposition home or self-care (01) ==
LOC: LBO 14:06
PROVIDERS: PCP Family Medicine; Visit Provider Family Medicine
DX: R30.0 Dysuria (principal); D50.9 Iron deficiency anemia, unspecified; E11.9 Type 2 diabetes mellitus without complications; I10 Essential (primary) hypertension; E03.9 Hypothyroidism, unspecified
CPT/HCPCS: 36415; 80053; 81003; 82728; 83036; 83540; 84443; 85025

== ENCOUNTER 2025-07-12 10:23 | Outpatient (CLI) | payer BC, SELFPAY | END 2025-07-12 10:24 | disposition home or self-care (01) | PROVIDERS: PCP Family Medicine; Visit Provider Family Medicine | DX: R00.2 Palpitations (principal) | CPT/HCPCS: 93246 ==

== ENCOUNTER 2025-08-02 08:25 | Outpatient (CLI) | payer BC, SELFPAY ==
--- NOTE | 2025-08-02 10:04 | W.CARDEVENT ---
Date of service: 08/02/25 Time of Service: 10:04 Cardiac Event Recorder Referring Provider:: Kaylee Bangura Indications:: Atrial fibrillation Cardiac Event Note: This is a cardiac event monitor. Patient was monitored for 11 days and 18 hours Rhythm throughout was sinus. Average heart rate was 67. Minimum was 43, maximum 1 There were very rare isolated ventricular ectopic beats. There were several occurrences of nonsustained ventricular tachycardia. These were generally 5-6 beats in length, longest was 18 beats There were rare atrial premature beats. There were several self-limited atrial runs, generally less than 5 beats in duration There was no atrial fibrillation, no high-grade AV block, no pauses greater than 3 seconds Symptoms were reported. The majority of these correlated to sinus rhythm and sinus bradycardia, rarely to atrial and ventricular ectopy. Atrial runs and nonsustained ventricular tachycardia were all asymptomatic
== END 2025-08-02 08:26 | disposition home or self-care (01) ==
LOC: CARDOPNVT 08:25
PROVIDERS: PCP Family Medicine; Visit Provider Internal Medicine Cardiovascular Disease
DX: R00.2 Palpitations (principal); I48.0 Paroxysmal atrial fibrillation; I47.29 Other ventricular tachycardia
CPT/HCPCS: 93248